=== PATIENT | female | born 1965 | race Caucasian/White ===

== ENCOUNTER 2018-03-15 20:54 | Inpatient (IN) | payer OTHER ==
[~2018-03-15] VITALS: Ht 127 cm; Wt 56.2 kg
--- NOTE | ~2018-03-15 | EKG ---
[address] [address] ELECTROCARDIOGRAM REPORT Name: HUMPHREY Room #: 461-P ADM IN M.R.#: [id number] Admission: 03/16/18 Attend Phys: Arron Strange MD Discharge: Date of : 63 Report #: [id number] THIS REPORT FOR: //name// [facility] ED Test Date: 2018-03-15 Test Time: 21:49:50 Pat Name: HOLLY YIN Department: Room: Gender: F Pest Management Supervisor: no : 1965 Requested By: Karime Siddiqui Order Number: [id number] MD: Shaun Gaming Measurements Intervals [place] Rate: 91 P: 41 NV: 142 QRS: 22 QRSD: 88 T: 50 QT: 342 QTc: 421 Interpretive Statements Sinus rhythm Compared to ECG 07/08/2012 19:53:04 No significant changes Electronically Signed On 03-16-2018 7:52:56 CDT by Shaun Gaming [email or web address] <ELECTRONICALLY SIGNED> By: Shaun Gaming MD 03/16/18 0752 2149 48 Shaun Gaming MD /JIM
--- NOTE | ~2018-03-15 | 2DMMODE ---
[facility] [address] [facility] [place] [address] 2 D/M-MODE ECHOCARDIOGRAM Name: YIN Room #: 461-P ADM IN M.R.#: [id number] Admission: 03/16/18 Attend Phys: Arron Strange MD Discharge: Date of : 63 Date of Service: 03/16/18 1011 Report #: [id number] THIS REPORT FOR: //name// APPROVED REPORT Study performed: 03/16/2018 09:16:37 EXAM: Comprehensive 2D, Doppler, and color-flow Echocardiogram Patient Location: Bedside Room #: 461 Status: routine BSA: 1.33 HR: 115 bpm BP: 146/96 mmHg Rhythm: Tachycardia Other Information Study Quality: Adequate Indications Hypertensive urgency. Hx: DM 2D Dimensions RVDd: 22.91 mm LVEF(%): 54.91 (>50%) IVSd: 9.71 (7-11mm) LVOT Diam: 17.61 (18-24mm) LVDd: 42.97 mm PWd: 10.48 (7-11mm) LVDs: 30.83 (25-40mm) Aortic Root: 27.15 mm Balbuena's LVEF: 54.91 % Volumes Left Atrial Volume (Systole) Single Plane 4CH: 20.27 mL Single Plane 2CH: 25.45 mL LA ESV Index: 19.00 mL/m2 Aortic Valve AoV Peak Saul.: 1.61 m/s AO Peak Gr.: 10.37 mmHg LVOT Max P.55 mmHg LVOT Max V: 1.07 m/s MONIQUE Vmax: 1.61 cm2 Pulmonary Valve PV Peak Saul.: 1.20 m/s PV Peak Gr.: 5.73 mmHg [facility] [address] [place] [address] 2 D/M-MODE ECHOCARDIOGRAM Name: DORCHESTER Room #: 461-P [facility] IN .R.#: [id number] Admission: 03/16/18 Attend Phys: Arron Strange MD Discharge: Date of : 63 Date of Service: 03/16/18 1011 Report #: [id number] Pulmonary Vein P Vein S: 0.63 m/s P Vein A: 0.44 m/s P Vein D: 0.41 m/s P Vein A Dur.: 79.6 msec P Vein S/D Ratio: 1.54 Tricuspid Valve TR Peak Saul.: 2.60 m/s RAP Estimate: 5.00 mmHg TR Peak Gr.: 27.02 mmHg PA Pressure: 32.00 mmHg Left Ventricle The left ventricle is normal size. There is normal LV segmental wall motion. There is normal left ventricular wall thickness. Left ventricular systolic function is normal. LVEF is 55-60%. This study is not technically sufficient to allow evaluation of the LV diastolic function due to tachycardia. Right Ventricle The right ventricle is normal size. The right ventricular systolic function is normal. Atria The left atrium size is normal. The right atrium size is normal. Aortic Valve The Aortic valve is mildly sclerotic. Trace aortic regurgitation. There is no aortic valvular stenosis. Mitral Valve The mitral valve is normal in structure. There is no mitral valve regurgitation noted. No evidence of mitral valve stenosis. Tricuspid Valve The tricuspid valve is normal in structure. Trace tricuspid regurgitation. Estimated PAP is 30-35mmHg. Pulmonic Valve Pulmonic valve is not well visualized. Great Vessels The aortic root is normal in size. IVC is normal in size and collapses >50% with inspiration. Pericardium Small pericardial effusion noted. [address] [address] 2 D/M-MODE ECHOCARDIOGRAM Name: Room #: 461-P [facility] IN M.R.#: [id number] Admission: 03/16/18 Attend Phys: Arron Strange MD Discharge: Date of : 63 Date of Service: 03/16/18 1011 Report #: [id number] <Conclusion> The left ventricle is normal size. LVEF is 55-60%. The Aortic valve is mildly sclerotic. Trace aortic regurgitation. The mitral valve is normal in structure. The tricuspid valve is normal in structure. Trace tricuspid regurgitation. Estimated PAP is 30-35mmHg. Pulmonic valve is not well visualized. Small pericardial effusion noted. <ELECTRONICALLY SIGNED> By: Jani Munoz MD 03/16/18 1011 1011 1011 Jani Munoz MD /INF
[~2018-03-15 20:54] MED LIST: AYR50 ML; AYR50 ML NASAL; CAL-CITRATE PL1 EACH; CALCIUM 600 +1 EAC1 PO; DEPAKOTE ER250 MG PO; DEPAKOTE ER500 MG PO; DETROL1 MG; ENABLEX15 MG PO; FLUOXETINE HCL20 M1 PO; FORTEO750 MCG/3 SUBQ; FOSAMAX 70 MG T70 M1 PO; GLIPIZIDE5 MG PO; IBUPROFEN 600600 M1; IBUPROFEN 600600 M1 PO; JANUVIA100 MG PO; LIPITOR 20 MG T20 M1 PO; LOPERAMIDE 2 MG2 M1 PO; LOXAPINE5 MG PO; MECLIZINE HCL25 M1 PO; METFORMIN HCL500 MG PO; NAPROSYN375 MG PO; NORCO 5-325 TA1 EACH PO; PERIDEX15 ML SWISH&SPIT; PRENATAL; PROZAC20 MG PO; REGULOID; RISPERIDONE; RISPERIDONE PO; TRAMADOL 50 MG50 MG PO; TROSPIUM CHLORI60 MG PO; UNICOMPLEX M TA1 TA1 PO; VITAMIN D1000 UNI1 PO; VITAMIN D31000 UNI2 PO; VITAMIN D3400 UNIT PO; VITAMIN D400 UNI1 PO; X VIATE TOP; ZPAK PO; [UNRECOGNIZED DRUG - OTHER]; [UNRECOGNIZED DRUG - OTHER] TOP
[2018-03-15 21:18] VITALS: BP 203/119
[2018-03-15] MEDS ORDERED: REGULOID0.4 GM PO (21:31)
[2018-03-15] MEDS ORDERED: PROLIA60 MG/1 ML SUBQ (21:33)
[2018-03-15] MEDS ORDERED: [UNRECOGNIZED DRUG - OTHER] NASAL (21:34)
[2018-03-15] MEDS ORDERED: TESSALON PERLE100 MG PO (21:34)
[2018-03-15] MEDS ORDERED: TRIPLE ANTIBIOT28 G2 TOP (21:36)
[2018-03-15] MEDS ORDERED: TRAMADOL 50 MG50 MG PO (21:37)
[2018-03-15 23:13] LABS: URINE BILIRUBIN NEGATIVE (Negative); URINE BLOOD NEGATIVE (Negative); URINE CLARITY CLEAR; URINE COLOR YELLOW; URINE GLUCOSE-RANDOM* NEGATIVE (Negative); URINE KETONES NEGATIVE (Negative); URINE LEUKOCYTES-REFLEX NEGATIVE (Negative); URINE NITRITE-REFLEX NEGATIVE (Negative); URINE PROTEIN (DIPSTICK) NEGATIVE (Negative); URINE UROBILINOGEN 0.2 E.U./dl (0.2-1.0)
[2018-03-15 23:14] LABS: ABSOLUTE NEUTROPHILS 6.3 thou/uL (1.4-8.2); BASOPHILS 0.7 % (0.0-2.0); EOSINOPHILS 4.5 % (0.0-3.0); HEMATOCRIT 36.8 % (37.0-47.0); HEMOGLOBIN 12.5 gm/dL (12.0-15.0); LYMPHOCYTES 23.8 % (24.0-44.0); MCH 29.6 pg (26.0-34.0); MCHC 33.8 g/dL (28.0-37.0); MCV 87.5 fL (80.0-100.0); MONOCYTES 10.1 % (1.0-8.0); PLATELET COUNT 275 thou/uL (150-400); POLYS 60.9 % (36.0-66.0); RBC 4.21 mil/uL (4.20-5.00); RDW 15.7 % (10.5-14.5); WBC 10.3 thou/uL (4.0-11.0)
[2018-03-15 23:21] LABS: ANION GAP 10 mmol/L (7-16); BUN 16 mg/dL (7-18); CHLORIDE 93 mmol/L (98-107); CO2 26 mmol/L (21-32); CREATININE 0.6 mg/dL (0.6-1.0); GLUCOSE 127 mg/dL (74-106); POTASSIUM 4.3 mmol/L (3.5-5.1); SODIUM 129 mmol/L (136-145)
[2018-03-15 23:30] LABS: ALBUMIN 3.1 g/dL (3.4-5.0); SGOT 11 U/L (15-37); SGPT 16 U/L (30-65); TOTAL BILIRUBIN 0.2 mg/dL (<0.1-1.0); TOTAL PROTEIN 7.3 g/dL (6.4-8.2); TROPONIN-I < 0.04 ng/mL (<0.06)
[2018-03-16 00:45] VITALS: BP 132/66
[2018-03-16 01:00] VITALS: BP 132/66
[2018-03-16 01:16] VITALS: BP 133/73
[2018-03-16 05:09] VITALS: BP 145/94
[2018-03-16 08:00] VITALS: BP 146/96
[2018-03-16 15:46] LABS: CALCIUM 8.5 mg/dL (8.5-10.1); CREATININE 0.6 mg/dL (0.6-1.0); POTASSIUM 4.5 mmol/L (3.5-5.1)
[2018-03-16 16:00] VITALS: BP 116/66
[2018-03-17 03:58] VITALS: BP 164/101
[2018-03-17 06:35] LABS: ABSOLUTE NEUTROPHILS 8.6 thou/uL (1.4-8.2); BASOPHILS 0.5 % (0.0-2.0); EOSINOPHILS 2.9 % (0.0-3.0); HEMATOCRIT 40.9 % (37.0-47.0); HEMOGLOBIN 13.6 gm/dL (12.0-15.0); LYMPHOCYTES 16.8 % (24.0-44.0); MCH 28.9 pg (26.0-34.0); MCHC 33.2 g/dL (28.0-37.0); MCV 86.9 fL (80.0-100.0); MONOCYTES 8.9 % (1.0-8.0); PLATELET COUNT 315 thou/uL (150-400); POLYS 70.9 % (36.0-66.0); RDW 15.7 % (10.5-14.5); WBC 12.1 thou/uL (4.0-11.0)
[2018-03-17 06:45] LABS: CALCIUM 9.2 mg/dL (8.5-10.1); CREATININE 0.5 mg/dL (0.6-1.0); POTASSIUM 3.7 mmol/L (3.5-5.1)
[2018-03-17 07:16] LABS: FOLIC ACID 16.2 ng/mL (8.6-58.9)
[2018-03-17 08:00] VITALS: BP 138/80
[2018-03-17] MEDS ORDERED: HYDRALAZINE 10M10 MG PO (13:55)
[2018-03-17] MEDS ORDERED: VITAMIN B-12500 MCG PO (14:13)
[2018-03-17 14:16] VITALS: BP 138/80
[2018-03-17 15:20] VITALS: BP 138/80
== END 2018-03-17 16:54 | disposition home or self-care (01) | DRG 304 ==
LOC: ER 20:54 → 4W 03-16 00:21 → EROBS 03-16 00:21 → 4W 03-16 00:47 → ENTRNSPT 03-17 16:31 → 4W 03-17 16:54
PROVIDERS: Hospitalist; Nurse Practitioner Family
DX: I16.0 Hypertensive urgency (principal); G93.40 Encephalopathy, unspecified; E87.1 Hypo-osmolality and hyponatremia; Q87.1 Congenital malformation syndromes predominantly associated with short stature; F42.9 Obsessive-compulsive disorder, unspecified; M81.0 Age-related osteoporosis without current pathological fracture; I10 Essential (primary) hypertension; R21 Rash and other nonspecific skin eruption; E53.8 Deficiency of other specified B group vitamins; R00.0 Tachycardia, unspecified; E11.9 Type 2 diabetes mellitus without complications; Z79.84 Long term (current) use of oral hypoglycemic drugs; Z79.899 Other long term (current) drug therapy; Z88.5 Allergy status to narcotic agent; Z88.8 Allergy status to other drugs, medicaments and biological substances
CPT/HCPCS: 10045

== ENCOUNTER 2019-02-27 18:22 | Emergency (ER) | payer OTHER ==
[~2019-02-27] VITALS: Ht 157.5 cm; Wt 54.0 kg
[~2019-02-27 18:22] MED LIST changes: +HYDRALAZINE 10M10 MG PO; +PROLIA60 MG/1 ML SUBQ; +REGULOID0.4 GM PO; +TESSALON PERLE100 MG PO; +TRIPLE ANTIBIOT28 G2 TOP; +VITAMIN B-12500 MCG PO; +[UNRECOGNIZED DRUG - OTHER] NASAL
[2019-02-27] MEDS ORDERED: LISINOPRIL20 MG PO (19:18)
[2019-02-27] MEDS ORDERED: PROLIA60 MG/1 ML SUBQ (19:21)
[2019-02-27] MEDS ORDERED: IBUPROFEN 800800 M1 PO (19:24)
[2019-02-27] MEDS ORDERED: [UNRECOGNIZED DRUG - OTHER] TOP (19:24)
[2019-02-27] MEDS ORDERED: TESSALON PERLE100 MG PO (19:25)
[2019-02-27] MEDS ORDERED: TYLENOL325 MG PO (19:25)
[2019-02-27] MEDS ORDERED: MUCINEX600 MG PO (19:26)
[2019-02-27] MEDS ORDERED: SORE THROAT LO1 EAC3 PO (19:26)
[2019-02-27] MEDS ORDERED: HYDRALAZINE 10M10 MG PO (19:27)
[2019-02-27] MEDS ORDERED: [UNRECOGNIZED DRUG - CODE] PO (19:27)
[2019-02-27] MEDS ORDERED: TRIPLE ANTIBIO1 EAC1 TOP (19:28)
[2019-02-27] MEDS ORDERED: IBUPROFEN 600600 M1 PO (20:27)
[2019-02-27 20:57] VITALS: BP 168/86
== END 2019-02-27 20:59 | disposition home or self-care (01) ==
LOC: ER 18:22
DX: S05.11XA Contusion of eyeball and orbital tissues, right eye, initial encounter (principal); S05.12XA Contusion of eyeball and orbital tissues, left eye, initial encounter; F42.9 Obsessive-compulsive disorder, unspecified; M81.0 Age-related osteoporosis without current pathological fracture; E11.9 Type 2 diabetes mellitus without complications; Z88.4 Allergy status to anesthetic agent; Z88.5 Allergy status to narcotic agent; Z88.8 Allergy status to other drugs, medicaments and biological substances

== ENCOUNTER 2019-06-11 13:58 | Emergency (ER) | payer OTHER ==
[~2019-06-11] VITALS: Ht 149.9 cm; Wt 54.4 kg
[~2019-06-11 13:58] MED LIST changes: +IBUPROFEN 800800 M1 PO; +LISINOPRIL20 MG PO; +MUCINEX600 MG PO; +SORE THROAT LO1 EAC3 PO; +TRIPLE ANTIBIO1 EAC1 TOP; +TYLENOL325 MG PO; +[UNRECOGNIZED DRUG - CODE] PO; +[UNRECOGNIZED DRUG - OTHER] TOP
[2019-06-11] MEDS ORDERED: TYLENOL EXTRA500 MG PO (15:13)
[2019-06-11 15:45] VITALS: BP 145/79
== END 2019-06-11 15:45 | disposition home or self-care (01) ==
LOC: ER 13:58
DX: S30.0XXA Contusion of lower back and pelvis, initial encounter (principal); S20.222A Contusion of left back wall of thorax, initial encounter; E11.9 Type 2 diabetes mellitus without complications; M81.0 Age-related osteoporosis without current pathological fracture; F42.9 Obsessive-compulsive disorder, unspecified; Z88.5 Allergy status to narcotic agent; Z88.6 Allergy status to analgesic agent; Z88.8 Allergy status to other drugs, medicaments and biological substances; W01.0XXA Fall on same level from slipping, tripping and stumbling without subsequent striking against object, initial encounter; Y92.89 Other specified places as the place of occurrence of the external cause; Y93.89 Activity, other specified; Y99.8 Other external cause status

== ENCOUNTER 2019-06-24 10:37 | Emergency (ER) | payer OTHER ==
[~2019-06-24] VITALS: Ht 149.9 cm; Wt 53.5 kg
[~2019-06-24 10:37] MED LIST changes: +TYLENOL EXTRA500 MG PO
[2019-06-24] MEDS ORDERED: LOXAPINE25 MG PO (11:13)
[2019-06-24 11:21] LABS: HEMATOCRIT 39.9 % (37.0-47.0); HEMOGLOBIN 13.3 gm/dL (12.0-15.0); MCH 30.4 pg (26.0-34.0); MCHC 33.2 g/dL (28.0-37.0); MCV 91.5 fL (80.0-100.0); PLATELET COUNT 339 thou/uL (150-400); RBC 4.36 mil/uL (4.20-5.00); RDW 14.4 % (10.5-14.5); WBC 9.8 thou/uL (4.0-11.0)
[2019-06-24] MEDS ORDERED: REGULOID POWDE PO (11:22)
[2019-06-24 11:31] LABS: ANION GAP 5 mmol/L (7-16); BUN 14 mg/dL (7-18); CALCIUM 9.9 mg/dL (8.5-10.1); CHLORIDE 91 mmol/L (98-107); CO2 32 mmol/L (21-32); CREATININE 0.6 mg/dL (0.6-1.0); GLUCOSE 133 mg/dL (74-106); SODIUM 128 mmol/L (136-145)
[2019-06-24 11:36] LABS: ALBUMIN 3.3 g/dL (3.4-5.0); DIRECT BILIRUBIN < 0.1 mg/dL (<0.1-0.3); SGOT 8 U/L (15-37); SGPT 15 U/L (30-65); TOTAL BILIRUBIN 0.2 mg/dL (<0.1-1.0); TOTAL PROTEIN 7.8 g/dL (6.4-8.2)
[2019-06-24 11:49] LABS: ABSOLUTE NEUTROPHILS 7.4 thou/uL (1.4-8.2); ATYPICAL LYMPHS 2 %
[2019-06-24 11:50] LABS: ANISOCYTOSIS SLIGHT; POIKILOCYTOSIS SLIGHT
[2019-06-24 11:52] LABS: URINE BILIRUBIN NEGATIVE (Negative); URINE BLOOD NEGATIVE (Negative); URINE CLARITY CLEAR; URINE COLOR YELLOW; URINE GLUCOSE-RANDOM* NEGATIVE (Negative); URINE KETONES 1+ (Negative); URINE LEUKOCYTES-REFLEX NEGATIVE (Negative); URINE NITRITE-REFLEX NEGATIVE (Negative); URINE PROTEIN (DIPSTICK) NEGATIVE (Negative); URINE UROBILINOGEN 0.2 E.U./dl (0.2-1.0)
[2019-06-24 11:59] LABS: AMP/METHAMP Negative (Negative); BARBITURATES Negative (Negative); BENZODIAZEPINES Negative (Negative); COCAINE Negative (Negative); METHADONE Negative (Negative); OPIATES Negative (Negative); PCP Negative (Negative)
[2019-06-24 13:46] VITALS: BP 152/89
== END 2019-06-24 13:45 | disposition home or self-care (01) ==
LOC: ER 10:37
PROVIDERS: Emergency Medicine
DX: E87.1 Hypo-osmolality and hyponatremia (principal); R45.1 Restlessness and agitation; R42 Dizziness and giddiness; E11.9 Type 2 diabetes mellitus without complications; M81.0 Age-related osteoporosis without current pathological fracture; F42.9 Obsessive-compulsive disorder, unspecified; Z88.5 Allergy status to narcotic agent; Z88.6 Allergy status to analgesic agent; Z88.8 Allergy status to other drugs, medicaments and biological substances; W18.39XA Other fall on same level, initial encounter; Y93.01 Activity, walking, marching and hiking; Y92.198 Other place in other specified residential institution as the place of occurrence of the external cause; Y99.8 Other external cause status

== ENCOUNTER 2019-10-01 10:58 | Emergency (ER) | payer OTHER ==
[~2019-10-01] VITALS: Ht 137.2 cm; Wt 49.0 kg
[~2019-10-01 10:58] MED LIST changes: +LOXAPINE25 MG PO; +REGULOID POWDE PO
[2019-10-01 12:20] LABS: ANION GAP 11 mmol/L (7-16); BUN 18 mg/dL (7-18); CALCIUM 9.8 mg/dL (8.5-10.1); CHLORIDE 89 mmol/L (98-107); CO2 25 mmol/L (21-32); CREATININE 0.5 mg/dL (0.6-1.0); GLUCOSE 151 mg/dL (74-106); HEMATOCRIT 38.2 % (37.0-47.0); HEMOGLOBIN 12.6 gm/dL (12.0-15.0); MCH 30.1 pg (26.0-34.0); MCHC 32.9 g/dL (28.0-37.0); MCV 91.5 fL (80.0-100.0); PLATELET COUNT 271 thou/uL (150-400); POTASSIUM 4.3 mmol/L (3.5-5.1); RBC 4.17 mil/uL (4.20-5.00); RDW 14.8 % (10.5-14.5); SODIUM 125 mmol/L (136-145); WBC 11.9 thou/uL (4.0-11.0)
[2019-10-01 12:30] LABS: ALBUMIN 3.5 g/dL (3.4-5.0); SGOT 12 U/L (15-37); SGPT 21 U/L (30-65); TOTAL BILIRUBIN 0.2 mg/dL (<0.1-1.0); TOTAL PROTEIN 8.1 g/dL (6.4-8.2); TROPONIN-I <0.06 ng/mL (<0.06)
[2019-10-01] MEDS ORDERED: PROLIA60 MG/1 ML SUBQ (13:04)
[2019-10-01 13:22] LABS: ABSOLUTE NEUTROPHILS 9.3 thou/uL (1.4-8.2)
[2019-10-01 13:24] LABS: ANISOCYTOSIS 1+
[2019-10-01 14:52] VITALS: BP 162/75
--- NOTE | 2019-10-02 09:58 | EKG ---
[place] [address] [facility] [place] [address] ELECTROCARDIOGRAM REPORT Name: HUMPHREY Room #: KERRI Fischer#: [id number] Admission: 10/01/19 Attend Phys: Discharge: 10/01/19 Date of : 63 Report #: [id number] THIS REPORT FOR: //name// [facility] ED Test Date: 2019-10-01 Test Time: 11:32:24 Pat Name: HOLLY YIN Department: Room: Gender: F Technology Instructor: ira bello : 1965 Requested By: Trice Chun Order Number: [id number] MD: Jcarlos Talbert Measurements Intervals [place] Rate: 116 P: MS: QRS: 24 QRSD: 86 T: 57 QT: 312 QTc: 434 Interpretive Statements Sinus tachycardia Otherwise normal tracing Compared to ECG 03/15/2018 21:49:50 No significant change was found Electronically Signed On 10-02-2019 9:57:54 LIFT BUILDER WHOLE by Jcarlos Talbert [email or web address] <ELECTRONICALLY SIGNED> By: Jcarlos Talbert MD, [facility] 10/02/19 0957 1132 1132 Jcarlos Talbert MD, FACC /EPI
== END 2019-10-01 14:54 | disposition home or self-care (01) ==
LOC: ER 10:58
PROVIDERS: Emergency Medicine
DX: I10 Essential (primary) hypertension (principal); R42 Dizziness and giddiness; E11.9 Type 2 diabetes mellitus without complications; M81.0 Age-related osteoporosis without current pathological fracture; Z88.6 Allergy status to analgesic agent; Z88.8 Allergy status to other drugs, medicaments and biological substances

== ENCOUNTER 2019-10-29 07:53 | Emergency (ER) | payer OTHER ==
[~2019-10-29] VITALS: Ht 137.2 cm; Wt 63.5 kg
[2019-10-29] MEDS ORDERED: AUGMENTIN 875-1 EACH PO (10:06)
[2019-10-29 10:12] VITALS: BP 142/82
== END 2019-10-29 10:15 | disposition home or self-care (01) ==
LOC: ER 07:53
DX: S01.81XA Laceration without foreign body of other part of head, initial encounter (principal); S01.511A Laceration without foreign body of lip, initial encounter; I10 Essential (primary) hypertension; E11.9 Type 2 diabetes mellitus without complications; M81.0 Age-related osteoporosis without current pathological fracture; Z88.6 Allergy status to analgesic agent; Z88.8 Allergy status to other drugs, medicaments and biological substances; W18.39XA Other fall on same level, initial encounter; Y93.89 Activity, other specified; Y92.128 Other place in nursing home as the place of occurrence of the external cause; Y99.8 Other external cause status

== ENCOUNTER 2019-11-24 11:06 | Inpatient (IN) | payer OTHER ==
[~2019-11-24] VITALS: Ht 121.9 cm; Wt 58.1 kg
[2019-11-24] VITALS (7 sets, daily range): BP systolic 111–166; BP diastolic 59–97
[~2019-11-24 11:06] MED LIST changes: +AUGMENTIN 875-1 EACH PO
[2019-11-24 14:26] LABS: ABSOLUTE NEUTROPHILS 9.5 thou/uL (1.4-8.2); BASOPHILS 0.8 % (0.0-2.0); EOSINOPHILS 1.8 % (0.0-3.0); HEMATOCRIT 33.9 % (37.0-47.0); MCH 29.9 pg (26.0-34.0); MCHC 32.6 g/dL (28.0-37.0); MCV 91.7 fL (80.0-100.0); MONOCYTES 10.1 % (1.0-8.0); PLATELET COUNT 341 thou/uL (150-400); POLYS 73.3 % (36.0-66.0); RBC 3.69 mil/uL (4.20-5.00); RDW 14.6 % (10.5-14.5)
[2019-11-24 14:38] LABS: CALCIUM 9.3 mg/dL (8.5-10.1); CREATININE 0.5 mg/dL (0.6-1.0); POTASSIUM 4.1 mmol/L (3.5-5.1)
[2019-11-24 14:42] LABS: APTT 28.6 Seconds (24.5-32.8); PROTIME 10.2 Seconds (9.3-11.4)
[2019-11-24 14:45] LABS: TOTAL BILIRUBIN 0.2 mg/dL (<0.1-1.0); TOTAL PROTEIN 7.7 g/dL (6.4-8.2)
[2019-11-24 15:57] LABS: URINE BILIRUBIN NEGATIVE (Negative); URINE BLOOD NEGATIVE (Negative); URINE CLARITY CLEAR; URINE COLOR YELLOW; URINE GLUCOSE-RANDOM* NEGATIVE (Negative); URINE KETONES TRACE (Negative); URINE LEUKOCYTES-REFLEX NEGATIVE (Negative); URINE NITRITE-REFLEX NEGATIVE (Negative); URINE PROTEIN (DIPSTICK) NEGATIVE (Negative); URINE SPECIFIC GRAVITY 1.015 (1.005-1.035); URINE UROBILINOGEN 0.2 E.U./dl (0.2-1.0)
--- NOTE | 2019-11-24 20:09 | NUR ---
PT ARRIVED ON UNIT AT 183. PT SETTLED IN TO BED, MONITOR APPLIED. IVF RUNNING. VSS. PT A/O X3. C/O SHOULDER PAIN.
[2019-11-25] VITALS (11 sets, daily range): BP systolic 139–192; BP diastolic 62–101
[2019-11-25 05:37] LABS: HEMATOCRIT 36.3 % (37.0-47.0); MCH 30.4 pg (26.0-34.0); MCHC 33.1 g/dL (28.0-37.0); MCV 91.9 fL (80.0-100.0); RBC 3.95 mil/uL (4.20-5.00); RDW 14.9 % (10.5-14.5); WBC 8.5 thou/uL (4.0-11.0)
[2019-11-25 05:51] LABS: CALCIUM 8.8 mg/dL (8.5-10.1); CREATININE 0.5 mg/dL (0.6-1.0); POTASSIUM 4.4 mmol/L (3.5-5.1)
--- NOTE | 2019-11-25 07:42 | NUR ---
PATIENT A&OX3 ABLE TO MAKE NEED KNOWN. COMPLAIN OF RT SHOULDER PAIN RELEIVED BY PAIN MEDICATION. PATIENT VERY PLESANT AND COOPERATIVE. TEACHING ON SAFETY AND FALL PREVENTION. NO ADVERSE EVENTS OVERNIGHT, HOWEVER PATIENT UNABLE TO SLEEP WELL. PATIENT IS MOVING TOWARD GOALS
--- NOTE | 2019-11-25 15:58 | NUR ---
PT DISCHARGE INSTRUCTIONS AND CHART COPY SENT WITH CAMPGROUND CLEANING ATTENDANT. PIV AND TELE WERE DC'D PTD. DR ELIZABETH NURSE TO CALL TO SET UP F/U CT HEAD. PT WHEELED OUT TO FACILITY VEHICLE.
== END 2019-11-25 16:02 | disposition short-term general hospital (02) | DRG 86 ==
LOC: ER 11:06 → EROBS 14:34 → ICU 18:15
PROVIDERS: Physician Assistant; ADMIT Hospitalist
DX: S06.6X0A Traumatic subarachnoid hemorrhage without loss of consciousness, initial encounter (principal); Q87.11 Prader-Willi syndrome; E87.1 Hypo-osmolality and hyponatremia; M81.0 Age-related osteoporosis without current pathological fracture; E11.9 Type 2 diabetes mellitus without complications; S01.01XA Laceration without foreign body of scalp, initial encounter; K59.00 Constipation, unspecified; S40.011A Contusion of right shoulder, initial encounter; I10 Essential (primary) hypertension; Z88.6 Allergy status to analgesic agent; Z88.8 Allergy status to other drugs, medicaments and biological substances; D72.829 Elevated white blood cell count, unspecified; E78.5 Hyperlipidemia, unspecified; W18.39XA Other fall on same level, initial encounter; Y93.01 Activity, walking, marching and hiking; Y92.098 Other place in other non-institutional residence as the place of occurrence of the external cause; Y99.8 Other external cause status
CPT/HCPCS: 10078

== ENCOUNTER 2019-12-01 17:09 | Emergency (ER) | payer OTHER ==
[~2019-12-01] VITALS: Ht 142.2 cm; Wt 59.9 kg
[2019-12-01 19:27] VITALS: BP 126/67
== END 2019-12-01 19:28 | disposition home or self-care (01) ==
LOC: ER 17:09
DX: S00.83XA Contusion of other part of head, initial encounter (principal); Z88.8 Allergy status to other drugs, medicaments and biological substances; Z88.5 Allergy status to narcotic agent; W18.39XA Other fall on same level, initial encounter; Y93.E1 Activity, personal bathing and showering; Y92.89 Other specified places as the place of occurrence of the external cause; Y99.8 Other external cause status

== ENCOUNTER 2020-01-17 15:37 | Inpatient (IN) | payer OTHER ==
[~2020-01-17] VITALS: Ht 152.4 cm; Wt 55.6 kg
--- NOTE | ~2020-01-17 | HC ---
[facility] [place] [address] CONSULTATION Name: Room #: 203-P ADM IN M.R.#: [id number] Admission: 01/17/20 Attend Phys: Ehsan Beltrán MD Discharge: Date of : 63 Report #: [id number] THIS REPORT FOR: cc: JOHN - Family physician unknown JOHN - Family physician unknown Jackie Bradley MD ~ CC: JOHN unknown Ehsan Beltrán DATE OF SERVICE: 01/17/2020 REASON FOR CONSULTATION: Hyponatremia. REASON FOR ADMISSION: Mental status changes. HISTORY OF PRESENT ILLNESS: This is obtained from the medical chart. The patient has some intellectual issues. She has known history of a Prader-Willi syndrome, chronic hyponatremia, hypertension, hyperlipidemia. She presented to the hospital on 01/17/2020 with mental status changes. She was admitted to further evaluate. She was found to have significant hyponatremia with sodium of 116. The patient is maintained on numerous antipsychotic medications including divalproex, fluoxetine or Prozac. Of note, this is the fact that the patient has been chronically hyponatremic. Her sodium level dating back to 10/2017 was reviewed and she had sodium level as low as 125. However, her most recent sodium value of 116 was the lowest. She has been given normal saline with the sodium going up to 126; however, this was discontinued because of rapid correction. Her sodium yesterday was 123 and I was consulted to manage her hyponatremia. There are no osmolarity studies. There are no urine electrolytes. The patient is not able to elaborate for me on her oral intake of fluids. No medication changes. History is really limited given the patient's mental status; however, it does look like that she is also maintained on ibuprofen. PAST MEDICAL HISTORY: 1. Prader-Willi syndrome. 2. Ankle surgery. 3. Breast biopsy. MEDICATIONS: Reported from the nursing facility, 1. Depakote. 2. Vitamin D. 3. Metformin. 4. Glipizide. 5. Prozac. 6. Ibuprofen. 7. Prolia. [facility] [address] [place] [address] CONSULTATION Name: Room #: 203-P [facility] IN M.R.#: [id number] Admission: 01/17/20 Attend Phys: Ehsan Beltrán MD Discharge: Date of : 63 Report #: [id number] ALLERGIES: 1. BENZODIAZEPINES. 2. LORAZEPAM. FAMILY HISTORY: Unable to obtain given the patient's limited mental capacity, REVIEW OF SYSTEMS: Unobtainable given the patient's current limited mental capacity. SOCIAL HISTORY: She lives in a intermediate. This is per medical record. I am not able to elaborate more. PHYSICAL EXAMINATION: GENERAL: She is awake and alert. VITAL SIGNS: Most recent blood pressure is 154/84. HEAD AND NECK: No jugular venous distention. CHEST: No crackles. CARDIOVASCULAR: No rub detected. ABDOMEN: Soft, nontender. EXTREMITIES: Lower extremities, no edema. LABORATORY VALUES: From today pending, sodium yesterday was 123, potassium 5, BUN 15, creatinine 0.4. IMPRESSION AND PLAN: 1. Acute hyponatremia in a patient with chronic hyponatremia. 2. Prader-Willi syndrome. 3. Diabetes mellitus. 4. Hypertension. 5. The patient's hyponatremia seems to be chronic and it seems to be related to her chronic psychotropic medications. However, other causes such as water intake and syndrome of inappropriate antidiuretic hormone secretion will have to be ruled out. She is also receiving nonsteroidal anti-inflammatory medication, which have to be discontinued. 6. Initiate acute hyponatremia workup. 7. Start on free water restrictions. 8. No need for 3% saline. 9. Try to eliminate as much as possible of her psychotropic medications as they might be contributing to her hyponatremia. By: [phone] Jackie Bradley MD /nt
[2020-01-17 15:37] VITALS: BP 161/86
[2020-01-17 16:07] LABS: ABSOLUTE NEUTROPHILS 7.4 thou/uL (1.4-8.2); BASOPHILS 0.5 % (0.0-2.0); EOSINOPHILS 1.2 % (0.0-3.0); HEMATOCRIT 35.1 % (37.0-47.0); LYMPHOCYTES 15.7 % (24.0-44.0); MCH 29.4 pg (26.0-34.0); MCHC 34.1 g/dL (28.0-37.0); MCV 86.3 fL (80.0-100.0); MONOCYTES 11.6 % (1.0-8.0); PLATELET COUNT 388 thou/uL (150-400); RBC 4.07 mil/uL (4.20-5.00); RDW 14.2 % (10.5-14.5); WBC 10.4 thou/uL (4.0-11.0)
[2020-01-17 16:17] LABS: CALCIUM 8.9 mg/dL (8.5-10.1); CREATININE 0.4 mg/dL (0.6-1.0); MAGNESIUM 1.5 mg/dL (1.8-2.4); POTASSIUM 4.7 mmol/L (3.5-5.1)
--- NOTE | 2020-01-17 16:22 | EKG ---
[facility] [place] [address] ELECTROCARDIOGRAM REPORT Name: HUMPHREY Room #: PRE M.R.#: [id number] Admission: Attend Phys: Discharge: Date of : 63 Report #: [id number] THIS REPORT FOR: cc: FAM - Family physician unknown FAM - Family physician unknown Jcarlos Talbert MD [facility] ~ THIS REPORT FOR: //name// [facility] ED Test Date: 2020-01-17 Test Time: 15:56:43 Pat Name: HOLLY HUMPHREY Department: Room: Gender: F Votator Machine Operator: [facility] : 1965 Requested By: Bry Hodgson Order Number: [id number] MD: Jcarlos Talbert Measurements Intervals [place] Rate: 96 P: 46 MN: 130 QRS: 15 QRSD: 89 T: 42 QT: 363 QTc: 459 Interpretive Statements Sinus rhythm No significant abnormality Compared to ECG 10/01/2019 11:32:24 Sinus tachycardia no longer present Electronically Signed On 01-17-2020 16:21:05 CDT by Jcarlos Talbert [email or web address] <ELECTRONICALLY SIGNED> By: Jcarlos Talbert MD, FACC 01/17/20 1621 1556 1556 Jcarlos Talbert MD, FACC /EPI
[2020-01-17 17:21] LABS: URINE BILIRUBIN NEGATIVE (Negative); URINE BLOOD TRACE (Negative); URINE CLARITY CLEAR; URINE COLOR YELLOW; URINE GLUCOSE-RANDOM* NEGATIVE (Negative); URINE KETONES NEGATIVE (Negative); URINE LEUKOCYTES-REFLEX NEGATIVE (Negative); URINE NITRITE-REFLEX NEGATIVE (Negative); URINE PROTEIN (DIPSTICK) NEGATIVE (Negative); URINE UROBILINOGEN 0.2 E.U./dl (0.2-1.0)
[2020-01-17 17:57] VITALS: BP 157/76
[2020-01-17 18:02] VITALS: BP 139/92
[2020-01-17 18:20] VITALS: BP 149/91
[2020-01-17 18:30] VITALS: BP 149/91
[2020-01-17 20:40] VITALS: BP 137/72
--- NOTE | 2020-01-18 04:41 | NUR ---
ASSUME CARE 1900. PT/VITALS STABLE. DENIES ANY PAIN. A/O TO PERSON AND PLACE, FOLLOWS COMMANDS AND ANSWERS QUESTIONS APPROPRIATELY. HOWEVER, CANNOT COMMUNICATE NEEDS. NO DISTRESS NOTED/SR ON MONITOR. ASSESSMENT CHARTED. PROGRESSING WELL WITH POC. PLAN IS TO CONTINUE TO MONITOR LOC AND REPLACE ELECTROLYTES NEEDED. WILL CONTINUE TO MONITOR AND FOLLOW WITH POC
[2020-01-18 04:43] LABS: CALCIUM 8.7 mg/dL (8.5-10.1); CREATININE 0.6 mg/dL (0.6-1.0); MAGNESIUM 2.5 mg/dL (1.8-2.4); POTASSIUM 4.8 mmol/L (3.5-5.1)
[2020-01-18 04:45] VITALS: BP 146/95
[2020-01-18 05:18] LABS: HEMATOCRIT 34.8 % (37.0-47.0); HEMOGLOBIN 11.5 gm/dL (12.0-15.0); MCH 28.9 pg (26.0-34.0); MCHC 33.2 g/dL (28.0-37.0); PLATELET COUNT 375 thou/uL (150-400); RBC 3.99 mil/uL (4.20-5.00); RDW 14.5 % (10.5-14.5); WBC 7.9 thou/uL (4.0-11.0)
[2020-01-18 07:30] VITALS: BP 158/100
[2020-01-18 07:57] LABS: ABSOLUTE NEUTROPHILS 4.9 thou/uL (1.4-8.2); ANISOCYTOSIS SLIGHT; ATYPICAL LYMPHS 2 %; POIKILOCYTOSIS SLIGHT
[2020-01-18 11:30] VITALS: BP 134/70
[2020-01-18 14:07] VITALS: BP 134/70
--- NOTE | 2020-01-18 14:18 | NUR ---
Case opened to follow for dc planning. Pt is a resident of many years at [facility]. She has hx of Prader-Martell/DM. The main number for the gp home is [phone]. Raysa is the house manger, cell # [phone]. The senior statistical programmer is Lawrence [phone], and her community service aide is Gary [phone]. All can assist with arrangements for her to return to the gp home at [place]. They like dc instructions reviewed with them and sent with the pt and any new scripts called and faxed to [facility] [phone] and fax [phone]. The pt will need a chart copy as well. Her PCP is Dr. Elin Lee and her neuro is out of [facility]. She has an uncoming telemedicine appt with them. The staff report that since her fall in November with SAH, she has been going to outpt therapy. She is an assist of 1 with a gait belt and walker for any transfers and gait. She can normally feed herself and is on a [facility] soft diet. They are open to HH f/u at [place] for RN/PT/OT as she is not able to go out to therapy d/t the stay at home order (Covid 19) and her decline in functional status. No preference for hh provider. Referral faxed [facility] for possible weekend dc. Lawrence is checking with Raysa to see if the pt's family was notified of her transfer and if she has a guardian or dpoa in place. Will follow.
[2020-01-18 16:06] VITALS: BP 152/98
--- NOTE | 2020-01-18 17:15 | NUR ---
PT CARE ASSUMED APPROX 0700. ASSESSMENTS CHARTED. PT DENIES SOA. REPORTED ABD PAIN THIS AM THAT RESOLVED AFTER HER BM. INTERVENTION FOR CONSTIPATION UNSUCCESSFUL BUT PT HAD A BM PRIOR TO LAXATIVE. PT APPETITE INTACT. TURNING Q2 HRS AND PRN. EXT CATH IN PLACE BUT MALFUNCTIONS AT TIMES. PT REMAINS INCONT. CLINICAL UPDATE GIVEN TO PT'S BROTHER JEN AND NURSE AT [facility]. HE DENIED QUESTIONS OR CONCERNS REGARDING POC. PT TOLERATING POC. NO DISTRESS NOTED.
[2020-01-18 19:25] VITALS: BP 126/62
[2020-01-19 04:45] VITALS: BP 150/89
[2020-01-19 05:59] LABS: HEMATOCRIT 33.4 % (37.0-47.0); HEMOGLOBIN 11.1 gm/dL (12.0-15.0); MCH 29.2 pg (26.0-34.0); MCHC 33.3 g/dL (28.0-37.0); MCV 87.5 fL (80.0-100.0); RBC 3.82 mil/uL (4.20-5.00); RDW 14.5 % (10.5-14.5)
[2020-01-19 06:11] LABS: CALCIUM 8.3 mg/dL (8.5-10.1); CREATININE 0.4 mg/dL (0.6-1.0); POTASSIUM 4.7 mmol/L (3.5-5.1)
[2020-01-19 07:36] VITALS: BP 159/95
--- NOTE | 2020-01-19 07:43 | NUR ---
PROGRESS PT ALERT AND ORIENTED TO SELF PLACE, STAFF. PUREWICK CATH IN PLACE, DISPLACED ONCE AND BED CHANGE PROVIDED. RF SL FLUSHES WITHOUT DIFFICULTY. SKIN C/D/I ACCUCHECKS AND SSI CONTINUE. GOOD PO FOOD AND FLUID INTAKE . TELE INTACT READING SR ALL OTHER VS WNL FALL PRECAUTIONS IN PLACE CONTINUE POC.
[2020-01-19 11:32] VITALS: BP 146/78
[2020-01-19 12:44] LABS: % SATURATION 14 % (20-39); IRON 48 ug/dL (50-170); TIBC 341 ug/dL (250-450)
[2020-01-19 13:11] LABS: FOLIC ACID 10.1 ng/mL (8.6-58.9)
[2020-01-19 15:48] VITALS: BP 146/82
--- NOTE | 2020-01-19 18:02 | NUR ---
PT CARE ASSUMED APPROX 0700. ASSESSMENTS CHARTED. PT DENIES PAIN AND SOA. VSS. PT PARTICIPATING IN CONVERSATION MORE THAN YESTERDAY. TOLERATED BEING UP TO CHAIR FOR A FEW HRS THIS SHIFT. CLINICAL UPDATE GIVEN TO PT'S BROTHER JEN. HE DENIED QUESTIONS AND CONCERNS REGARDING PT'S POC. PT TOLERATING POC. NO DISTRESS NOTED.
[2020-01-19 20:45] VITALS: BP 148/96
[2020-01-20 04:45] VITALS: BP 162/90
[2020-01-20 05:16] LABS: CALCIUM 9.2 mg/dL (8.5-10.1); CREATININE 0.4 mg/dL (0.6-1.0)
--- NOTE | 2020-01-20 06:10 | NUR ---
SLEPT PART OF SHIFT. TURNS SELF WHEN REMINDED. FEMALE CATH IN PLACE AND PATIENT INCONTINENT THIS SHIFT. WORKING ON GOALS AND PLAN OF CARE FOR NOC. PROGRESSING SLOWLY TOWARDS DISCHARGE GOALS. ENCOURAGE FLUIDS. CONTINUE TO ASSES CLOSELY.
[2020-01-20 08:51] VITALS: BP 155/91
[2020-01-20 12:24] VITALS: BP 151/102
[2020-01-20 16:54] VITALS: BP 146/77
--- NOTE | 2020-01-20 17:32 | NUR ---
ASSUMED CARE OF PATIENT AT 0700. ASSESSMENTS COMPLETED. PLEASANT PATIENT IS ALERT TO SELF AND PLACE. APPROPRIATE. INCONTINENT TO BOWEL AND BLADDER. EXTERNAL FEMALE CATH IN PLACE AND WORKING APPROPRIATELY. BLOOD SUGARS ACHS, DINNER TIME BLOOD SUGAR OF 66, GIVEN 4 OZ OF ORANGE JUICE AND RECHECK AT 125. PATIENT TO CONTINUE WITH POC.
[2020-01-20 19:30] VITALS: BP 148/89
[2020-01-21 01:22] LABS: URINE BILIRUBIN NEGATIVE (Negative); URINE BLOOD TRACE (Negative); URINE CLARITY CLOUDY; URINE COLOR YELLOW; URINE GLUCOSE-RANDOM* 1+ (Negative); URINE KETONES TRACE (Negative); URINE LEUKOCYTES 1+ (Negative); URINE NITRITE NEGATIVE (Negative); URINE PROTEIN (DIPSTICK) NEGATIVE (Negative); URINE UROBILINOGEN 0.2 E.U./dl (0.2-1.0)
[2020-01-21 01:26] LABS: URINE CREATININE-RANDOM* 41.2 mg/dL
[2020-01-21 01:28] LABS: SQUAMOUS None Seen /LPF (0-3)
[2020-01-21 01:29] LABS: BACTERIA >30 Many /HPF (None Seen); CASTS None Seen /LPF (None Seen); CRYSTALS None Seen /LPF (None Seen); MUCUS 0-3 Light strn/LPF (None Seen); URINE RBC 3-10 Few /HPF (0-2); URINE WBC 6-15 Few /HPF (0-5)
[2020-01-21 04:30] VITALS: BP 154/84
--- NOTE | 2020-01-21 06:07 | NUR ---
PT RESTING QUIETLY IN ROOM REPOSITIONED NEEDED,EXTERNAL CATHETER WITH YELLOW URINE, NO C/O PAIN, ALERT TO SELF AND PLACE, WILL CON'T TO MONITOR PER PPOC.
[2020-01-21 07:00] VITALS: BP 151/89
[2020-01-21 07:53] LABS: CALCIUM 8.7 mg/dL (8.5-10.1); CREATININE 0.5 mg/dL (0.6-1.0); POTASSIUM 4.8 mmol/L (3.5-5.1)
[2020-01-21 07:57] LABS: PHOSPHORUS 3.9 mg/dL (2.5-4.9)
[2020-01-21 11:30] VITALS: BP 156/88
--- NOTE | 2020-01-21 13:49 | NUR ---
Assumed pt care at 7am.Pt in bed alert and oriented to person and place. Assessment completed.vss and hr in the 80's and nsr per telemetry.Dr Arroyo and Neville here,order noted.Complete bed bath given by adoption manager.Pt transfered to chair with assist and walker.Fall precaution in place.Pt up in chair at present watching tv.Will continue to monitor.
[2020-01-21 16:30] VITALS: BP 155/93
[2020-01-21 19:40] VITALS: BP 148/79
[2020-01-22 04:54] VITALS: BP 155/76
--- NOTE | 2020-01-22 06:05 | NUR ---
Up in the chair at shift change then assisted back to bed. Able to state name only at beginning of shift then this am she remembered she's at the hospital. She has been calm,cooperative and pleasant. Maintained fluid restriction due to low Na. Incontinent of bladder , external female cath changed this am. Bed alarm on for safety and SCD's in place. Making progress towards care plan goals.
[2020-01-22 07:33] LABS: CREATININE 0.5 mg/dL (0.6-1.0); POTASSIUM 4.5 mmol/L (3.5-5.1)
[2020-01-22 07:38] LABS: ALBUMIN 2.8 g/dL (3.4-5.0)
[2020-01-22 07:42] VITALS: BP 158/82
[2020-01-22 11:35] VITALS: BP 114/98
[2020-01-22] MEDS ORDERED: HUMALOG100 UNIT/1 SUBQ (13:37)
[2020-01-22] MEDS ORDERED: GLIPIZIDE5 MG PO (13:38)
[2020-01-22] MEDS ORDERED: SODIUM CHLORIDE1 GM PO (13:38)
--- NOTE | 2020-01-22 15:40 | NUR ---
PATIENT ADMITTING THIS DATE TO ACUTE REHAB. ART SPECIALIST SPOKE WITH PATIENT'S BROTHER WHO IS PRIMARY CONTACT (PATIENT HAS NO DPOA). JEN IS IN AGREEMENT WITH PLAN FOR ACUTE REHAB. JEN'S NUMBER [phone]. CLOTHING FOR REHAB STAY HAS BEEN DROPPED OFF AND WILL BE COMING UP WHEN PATIENT ARRIVES. THANK YOU FOR THIS REFERRAL.
--- NOTE | 2020-01-22 17:38 | NUR ---
VSS-AFEBRILE. LUNGS CLEAR/DIMINISHED IN ALL CAMPOS BILATERALLY-ROOM AIR. 2 LARGE, SOFT BOWEL MOVEMENTS THIS SHIFT. BATH GIVEN BY OT. REPORT CALLED TO REHAB NURSE, PATIENT TRANSFERRED BY BED TO N.
== END 2020-01-22 17:22 | DRG 643 ==
LOC: ER 15:37 → 2N 18:05
PROVIDERS: Emergency Medicine; Hospitalist; Internal Medicine; Nurse Practitioner; ADMIT Hospitalist
DX: E22.2 Syndrome of inappropriate secretion of antidiuretic hormone (principal); G92 Toxic encephalopathy; Q87.11 Prader-Willi syndrome; E83.42 Hypomagnesemia; E11.9 Type 2 diabetes mellitus without complications; E78.5 Hyperlipidemia, unspecified; I10 Essential (primary) hypertension; R41.0 Disorientation, unspecified; M81.0 Age-related osteoporosis without current pathological fracture; R00.0 Tachycardia, unspecified; F41.9 Anxiety disorder, unspecified; D50.9 Iron deficiency anemia, unspecified; Z09 Encounter for follow-up examination after completed treatment for conditions other than malignant neoplasm; Z87.81 Personal history of (healed) traumatic fracture; Z88.6 Allergy status to analgesic agent; Z88.8 Allergy status to other drugs, medicaments and biological substances
CPT/HCPCS: 10081

== ENCOUNTER 2020-01-22 14:10 | Inpatient (IN) | payer OTHER ==
[~2020-01-22] VITALS: Ht 152.4 cm; Wt 53.1 kg
[~2020-01-22 14:10] MED LIST changes: +HUMALOG100 UNIT/1 SUBQ; +SODIUM CHLORIDE1 GM PO
[2020-01-22 17:30] VITALS: BP 146/98
[2020-01-22 19:23] VITALS: BP 157/81
[2020-01-22 19:29] LABS: URINE BILIRUBIN NEGATIVE (Negative); URINE BLOOD NEGATIVE (Negative); URINE CLARITY CLEAR; URINE COLOR YELLOW; URINE GLUCOSE-RANDOM* NEGATIVE (Negative); URINE KETONES NEGATIVE (Negative); URINE LEUKOCYTES-REFLEX NEGATIVE (Negative); URINE NITRITE-REFLEX NEGATIVE (Negative); URINE PROTEIN (DIPSTICK) NEGATIVE (Negative); URINE SPECIFIC GRAVITY 1.015 (1.005-1.035); URINE UROBILINOGEN 0.2 E.U./dl (0.2-1.0)
--- NOTE | 2020-01-22 19:52 | NUR ---
PT ADMIT TO 5N AT 1730. RECEIVED A REPORT FROM FRANCISCO JIMENEZ, AT 2N. PT HAD UA RESULT ON 01/20 SHOWS LEUKOCYTE ESTERASE, AND MANY WBC. PT IS NOT ON ABT FOR UTI. AND NOT ON IV IRON FOR HER ANEMIA. HGB 11.1 TODAY. SUGGESTED FRANCISCO TO CALLED DR. HANNAH TWICE. NO RESPONSE. THIS PHLEBOTOMIST SUPERVISOR/INSTRUCTOR CALLED JAYA ABOUT UA RESULT AND THAT PT IS NO LONGER ON IV IRON. AND SHE STARTED PT ON ZOSYN IV AND RECHECK UA FOR CULTURE AND WILL CONTINUE TO FOLLOW UP WITH NEED FOR IV IRON. STRAIGHT CATH UA AND SEND TO LAB, IS NEGATIVE FOR UA. CALLED JAYA AND RECEIVED T.O TO DISCONTINUE IV ABT. CONSULT PHYSICIANS WERE NOTIFIED. PT ALERT TO SELF AND PLACE. VSS OBTAINED. 146/98, HR 93, R 20 O2 99% ON RA. BS 124. NO INSULIN GIVEN. PT HAD ONE INCONT BLADDER. PT HAS RIGHT AC IV SL. GAVE REPORT TO NIGHT NURSE TO FINISHED ADMISSION. FALL PRECAUTION IN PLACE. CALL LIGHT WITHIN REACH.
[2020-01-23 06:34] LABS: HEMATOCRIT 37.8 % (37.0-47.0); HEMOGLOBIN 12.7 gm/dL (12.0-15.0); MCH 29.2 pg (26.0-34.0); MCHC 33.5 g/dL (28.0-37.0); RBC 4.35 mil/uL (4.20-5.00)
[2020-01-23 06:48] LABS: ALBUMIN 2.9 g/dL (3.4-5.0); CALCIUM 8.6 mg/dL (8.5-10.1); CREATININE 0.5 mg/dL (0.6-1.0); PHOSPHORUS 4.3 mg/dL (2.5-4.9); POTASSIUM 4.5 mmol/L (3.5-5.1)
--- NOTE | 2020-01-23 07:55 | NUR ---
PROGRESS PT ALERT TO SELF, PLEASANT AND COOPERATIVE. VSS, ON MEHANICAL ALTERED DIET AND THIN LIQUIDS MEDS AND SNACK OF UDDING GIVEN AND PT ATE INDEPENDENTLY WITH NO DIFFICULTY. FOOD AND WATER TOLERATED WITH NO CHOKING NOTED. VOIDING QS UP TO BR AND INCONTINENT X 1. ACCUCHECKS AND SSI CONTINUE. PT IS USED TO ACCUCHECKS AND ALLOWS STAFF TO MONITOR. UP WITH 1 TO 2 GB AND WALKER PT STILL WEAK FROM ELECTROLYTE IMBALANCE. AM LABS OBTAINED AWAITING RESULTS. CONTINUE POC.
[2020-01-23 07:56] VITALS: BP 134/74
--- NOTE | 2020-01-23 13:22 | NUR ---
Case opened to follow for dc planning. Pt was admitted to the acute rehab unit yesterday. Pt's RN harrison Smart, from the gp home and brother Beck updated and agreeable. Pt agreeable. The pt has had a functional decline over the past few weeks and the long-term is not allowing HH f/u due to current Covid 19 visitor restrictions. Pt is being seen by PT/OT/ST. [facility] will need to be contacted to coordinate pt's return to the gp home. DC instructions would need to be faxed to the facility. [facility] would need any new scripts faxed to them [phone]. Pt's pcp is Dr. Elin Lee. The pt was able to feed herself and walk with a gait belt, rwalker and sba prior to admission. The pt's brother is the primary next of kin contact as their parents are elderly and live in [place], [place]. The pt has lived at the long-term for many years. Prior to a couple of months ago she was supervision for all gait and adl's. Will update all parties after team conference.
--- NOTE | 2020-01-23 16:09 | NUR ---
ASSUMED PT CARE AT 0700. REPORT DIDN'T SLEEP WELL LAST NIGHT. PT ALERT TO SELF, PLACE PLEASANT AND COOPERATIVE. VSS, ON MEHANICAL ALTERED DIET AND THIN LIQUIDS MEDS AND SNACK OF UDDING GIVEN AND PT ATE INDEPENDENTLY WITH NO DIFFICULTY. FOOD AND WATER TOLERATED WITH NO CHOKING NOTED. ENCOURAGED PT TO BE UP IN DINNING ROOM FOR MEALS. PT HAS BEEN UP AND PARTICIPATED WITH ALL HER THERAPY EVALUATION THIS AM AND TOLERATED WELL. OFFERED SUPPORTIVE CARE. ENCOUARGED PT TO VOICE HER NEEDS. BS MONITOR, INSULIN AND MEDS GIVEN ORDERED. PT ABLE TO TAKE MED ONE AT THE TIME WITH WATER. UP WITH MOD ASSIST GB AND WALKER. LABS REVIEWED AND NOTIFIED JAYA. OBTAINED ORDER FOR MELATONIN TONIGTH. FALL PRECAUTION IN PLACE. CALL LIGHT WITHIN REACH CHECK FREQUENTLY FOR NEEDS AND SAFETY.
[2020-01-23 19:38] VITALS: BP 130/64
[2020-01-24 00:07] LABS: GLYCOHEMOGLOBIN (HGB A1C) 6.2 % (4.8-5.6)
--- NOTE | 2020-01-24 03:51 | NUR ---
assumed care at approx 1900 evening 01/22. pt lying in bed at change of shift resting and watching tv. pt pleasant and cooperative. pt took hs meds with water tolerating well. pt assisted with changing of pad as pt incontinent of urine. pt appears to be sleeping soundly with hourly rounding checks. bed alarm on and call light in reach. will continue to monitor.
[2020-01-24 07:25] VITALS: BP 152/80
--- NOTE | 2020-01-24 15:53 | NUR ---
ASSUMED CARES AT 0700. PT ORIENTED TO PERSON AND PLACE ONLY. C/O RIGHT FOOT PAIN AFTER PHYSICAL THERAPY, ACETAMINOPHEN ADMINISTERED NEEDED. VITALS REMAIN STABLE. 1L FLUID RESTRICTION MAINTAINED. PT REMAINS INCONTINENT OF BLADDER, URINE IS YELLOW AND CLEAR. PT UP WITH 1 MOD ASSIST, GB AND WALKER. HELMET WORN THIS AFTERNOON WITH ACTIVITY. Q1H VISUAL CHECKS. CALL LIGHT WITHIN REACH. FALL PRECAUTIONS IN PLACE
[2020-01-24 19:20] VITALS: BP 151/76
--- NOTE | 2020-01-25 02:39 | NUR ---
DENIES PAIN OR ITCHING AT THIS TIME. LARGE BM AND HAS BEEN INCONTINENT OF URINE TWICE SINCE THEN. TOLERATING PILLS WITH ONLY 2 BITES OF PUDDING. NO FURTHER FOOD DESIRED, SO SSI NOT GIVEN FOR BLOOD SUGAR OF 160 PLUS WAS 89 AT DINNERTIME. FLUID RESTRICTION CONTINUES.
[2020-01-25 07:25] VITALS: BP 176/99
--- NOTE | 2020-01-25 11:03 | H ---
[facility] [place] [address] HISTORY AND PHYSICAL Name: Room #: 505-P ADM IN M.R.#: [id number] Admission: 01/22/20 Attend Phys: Artis Bates MD Discharge: Date of : 63 Report #: [id number] THIS REPORT FOR: cc: Elin Lee MD,Elin Bates,Artis Bagley MD ~ CC: Artis Bates FAM unknown DATE OF SERVICE: 01/22/2020 HISTORY AND PHYSICAL/POSTADMISSION PHYSICIAN EVALUATION HISTORY OF PRESENT ILLNESS: The patient is a 54-year-old female with Prader-Willi syndrome, who originally was admitted to [facility] on 01/17/2020 with hyponatremia and sodium of 116. She was evaluated by Nephrology and Psychiatry. Her Prozac and loxapine were discontinued. She was placed on sodium tablets, fluid restriction, found to have iron deficiency anemia, on Venofer infusion. She did have improvement of her sodium up to 129, but her mentation was noted to not be back to baseline. She has had a metabolic encephalopathy. She also has had a significant decline from her premorbid functional level as she had been ambulatory with a walker premorbidly. She has now been admitted for acute in-hospital inpatient rehabilitation. PAST MEDICAL HISTORY: As noted above. She has a history of Prader-Willi syndrome, history of hypertension. There is a note of past subarachnoid hemorrhage. MEDICATIONS: Please see the full medication listing. ALLERGIES: SHE DOES HAVE MULTIPLE ALLERGIES ARE LISTED. SOCIAL HISTORY: The patient lives in a intermediate, she is on disability, used to front-wheeled walker. She has some assist with ADLs and IADLs were provided for. REVIEW OF SYSTEMS: No current complaints of chest pain, shortness of breath or abdominal discomfort. PHYSICAL EXAMINATION: GENERAL: A 54-year-old white female in no obvious distress. VITAL SIGNS: Last recorded temperature 98.3, pulse 89, respirations 20, blood pressure 157/81. NEUROLOGIC: The patient is alert. She does follow basic 1 step commands. There is a definite latency to her responses. Facies appeared to be symmetric. She is able to respond with simple sentences. [facility] [address] [place] [address] HISTORY AND PHYSICAL Name: Room #: 505-P ADM IN M.R.#: [id number] Admission: 01/22/20 Attend Phys: Artis Bates MD Discharge: Date of : 63 Report #: [id number] HEENT: Otherwise appeared benign. CHEST: Sounded clear to auscultation. CARDIOVASCULAR: Regular rate and rhythm. ABDOMEN: Bowel sounds positive, nontender. GENITOURINARY AND RECTAL: Deferred. EXTREMITIES: She does have some decreased range of motion at end range bilateral upper extremities. Strength is probably grade 3+/5. Lower extremities: She can lift both lower extremities antigravity, some decrease at end range of her hips. Strength is probably a grade 3+/5. Negative Homans. No focal calf swelling. She has been mod assist with basic sit to stand transfers. ASSESSMENT: A 54-year-old female with the following problem list: 1. Metabolic encephalopathy. 2. Medical complexity with generalized debilitation. 3. Multifactorial hyponatremia. 4. Prader-Willi syndrome. 5. Iron deficiency anemia. 6. Hypertension. PLAN: The patient is admitted for acute in-hospital inpatient rehabilitation. From a postadmission physician evaluation perspective, there are no relevant changes since the preadmission screening. Please see the above review of prior and current medical and functional conditions and comorbidities. Please see the patient's previous and current functional status. As far as risk of complications, the patient has multiple medical comorbidities as noted above. Initial plan of care involves the interdisciplinary acute inpatient rehabilitation program. Prognosis is reasonably good with estimated length of stay probably at least 7-10 days. Potential barriers would include her multiple medical comorbidities as noted above. The patient meets diagnostic criteria for an acute in-hospital inpatient rehabilitation stay. She meets the medical necessity criteria and we will have the data communications software consultant physicians continue to follow. She does have the tolerance for therapies and has appropriate discharge goals back to the home setting. <ELECTRONICALLY SIGNED> By: Artis Bates MD 01/25/20 1103 [id number] Artis Bates MD /[facility]
--- NOTE | 2020-01-25 14:42 | NUR ---
ASSUMED CARES AT 0700. PT ORIENTED TO PERSON AND PLACE. VITALS STABLE. C/O PAIN AROUND HER TOES, TYLENOL ADMINISTERED. NO SWELLING/ HEAT OR WOUNDS NOTED. PT REMAINS INCONTINENT OF BOWEL AND BLADDER, CLEANED AND CHANGED. 1000ML FLUID RESTRICTIONS MAINTAINED. PT PARTICIPATED IN ALL THERAPIES, TOLERATED WELL. Q1H VISUAL CHECKS. CALL LIGHT WITHIN REACH. FALL PRECAUTIONS IN PLACE AND HELMET ON WITH ALL ACTIVITIES
[2020-01-25 19:34] VITALS: BP 153/94
[2020-01-25 22:30] VITALS: BP 148/67
--- NOTE | 2020-01-26 01:24 | NUR ---
PT ASSESSMENT COMPLETED AND VSS. MEDS GIVEN ORDERED AND WELL TOLERATED. FALL PRECAUTIONS IN PLACE. INC OF BOWEL AND BLADDER. LARGE BM AT HS. ASST WITH REPOSITION FOR COMFORT. SLEEPING WELL. WILL CONTINUE TO MONITOR FREQUENTLY.
[2020-01-26 04:51] LABS: ABSOLUTE NEUTROPHILS 5.2 thou/uL (1.4-8.2); BASOPHILS 1.2 % (0.0-2.0); EOSINOPHILS 6.1 % (0.0-3.0); HEMATOCRIT 33.8 % (37.0-47.0); HEMOGLOBIN 11.1 gm/dL (12.0-15.0); LYMPHOCYTES 25.1 % (24.0-44.0); MCHC 32.8 g/dL (28.0-37.0); MCV 88.2 fL (80.0-100.0); MONOCYTES 8.4 % (1.0-8.0); PLATELET COUNT 353 thou/uL (150-400); POLYS 59.2 % (36.0-66.0); RBC 3.83 mil/uL (4.20-5.00); WBC 8.8 thou/uL (4.0-11.0)
[2020-01-26 05:05] LABS: CALCIUM 7.7 mg/dL (8.5-10.1); CREATININE 0.5 mg/dL (0.6-1.0); MAGNESIUM 1.9 mg/dL (1.8-2.4); POTASSIUM 4.3 mmol/L (3.5-5.1)
[2020-01-26 08:00] VITALS: BP 113/74; BP 151/79
--- NOTE | 2020-01-26 16:16 | NUR ---
ASSUMED CARES AT 0700. REPORTS SLEPT GOOD. PT ORIENTED TO PERSON AND PLACE ONLY. C/O RIGHT FOOT PAIN WITH PHYSICAL THERAPY, ACETAMINOPHEN ADMINISTERED SCHEDULE. VITALS REMAIN STABLE. 1L FLUID RESTRICTION MAINTAINED. SODIUM IS 132 TODAY. SODIUM TABLET DISCONTINUE PER JAYA. PT REMAINS INCONTINENT OF BLADDER, URINE IS YELLOW AND CLEAR. HAD HAD LARGE LOOSE BM WHILE HAVING SPEECH THERAPY. REGIONAL EDUCATION MANAGER CLEANSED. PT UP WITH 1 MOD ASSIST, GB AND WALKER. HELMET WORN WITH ACTIVITY. OFFERED SUPPORTIVE CARE. ENCOURAGED PT TO VOICE HER NEEDS. REASSESSMENT PER CHART. BS MONITOR. MORNING MEDS GIVEN ONE AT THE TIME WITH WATER. UP TO DINNING ROOM FOR MEALS. ABLE TO FEED HERSELF AND ATE 100% HER TRAY.Q1H VISUAL CHECKS. CALL LIGHT WITHIN REACH. FALL PRECAUTIONS IN PLACE. WILL CONTINUE TO MONITOR.
[2020-01-26 19:40] VITALS: BP 156/92
--- NOTE | 2020-01-26 23:44 | NUR ---
PT ALERT AND ORIENTED X 2. INCONT OF URINE. BLOOD SUGAR 199 AT HS. INSULIN GIVEN ORDERED. PT DENIES PAIN OR DISCOMFORT. BED ALARM ON FOR SAFETY. PT APPEARS TO BE SLEEPING ON HOURLY ROUNDS.
[2020-01-27 07:20] VITALS: BP 173/99
[2020-01-27 10:00] VITALS: BP 148/81
--- NOTE | 2020-01-27 11:40 | EKG ---
[facility] [place] [address] ELECTROCARDIOGRAM REPORT Name: Room #: 505-P ADM IN M.R.#: [id number] Admission: 01/22/20 Attend Phys: Artis Bates MD Discharge: Date of : 63 Report #: [id number] THIS REPORT FOR: cc: Elin Lee MD,Elin Gaming,Shaun Vicente MD ~ THIS REPORT FOR: //name// [facility] Test Date: 2020-01-27 Test Time: 10:27:23 Pat Name: JANUARY HUMPHREY Department: Room: [facility] P Gender: F Engineering Secretary: DHAVAL : 1965 Requested By: Nat Lancaster Order Number: [id number] MD: Shaun Gaming Measurements Intervals Randall Rate: 96 P: 20 AK: 141 QRS: -5 QRSD: 150 T: 30 QT: 328 QTc: 415 Interpretive Statements Sinus rhythm Left atrial enlargement Left ventricular hypertrophy Anterior Q waves, possibly due to LVH Compared to ECG 01/17/2020 15:56:43 Electronically Signed On 01-27-2020 11:38:33 CDT by Shaun Gaming [email or web address] <ELECTRONICALLY SIGNED> By: Shaun Gaming MD 01/27/20 1138 1027 1027 Shaun Gaming MD /EPI
--- NOTE | 2020-01-27 14:07 | NUR ---
ASSUMED CARES AT 0700. PT ORIENTED TO PERSON AND PLACE ONLY. C/O FEET PAIN, AROUND TOES, TYLENOL ADMINISTERED ORDERED. BP AND HR ELEVATED THIS AM, HOSPITALIST NOTIFIED AND ORDERS RECEIVED, WILL CONTINUE TO MONITOR. 1000ML FLUID RESTRICTION MAINTAINED. PT REMAINS INCONTINENT OF BOTH BOWEL AND BLADDER, JORDEN-CARE GIVEN AND BARRIER CREAM APPLIED. PT UP WITH 1-2 MOD ASSIST, GB AND WALKER. HELMET ON WITH ALL TRANSFERS AND AMBULATION. Q1H VISUAL CHECKS. CALL LIGHT WITHIN REACH. FALL PRECAUTIONS IN PLACE
[2020-01-27 19:10] VITALS: BP 129/76
--- NOTE | 2020-01-28 02:14 | NUR ---
PT CARE ASSUMED AT 1900 WITH PT IN BED WATCHING TV.PT APPEAR TO BE IN NO ACUTE DISTRESS DURING THE SHIFT.PT IS A/O X3 AND VERY PLEASANT.PT TOOK MEDICATIONS WITH NO ISSUES.PT NEEDS A NEW HELMET OLD HELMET IS BIG.WILL CONTINUE TO MONITOR PER POC
[2020-01-28 07:04] LABS: ABSOLUTE NEUTROPHILS 3.9 thou/uL (1.4-8.2); BASOPHILS 0.7 % (0.0-2.0); EOSINOPHILS 5.5 % (0.0-3.0); HEMATOCRIT 37.2 % (37.0-47.0); HEMOGLOBIN 12.4 gm/dL (12.0-15.0); LYMPHOCYTES 25.9 % (24.0-44.0); MCH 29.2 pg (26.0-34.0); MCHC 33.2 g/dL (28.0-37.0); MONOCYTES 10.3 % (1.0-8.0); PLATELET COUNT 379 thou/uL (150-400); POLYS 57.6 % (36.0-66.0); RBC 4.23 mil/uL (4.20-5.00); RDW 15.1 % (10.5-14.5); WBC 6.7 thou/uL (4.0-11.0)
[2020-01-28 07:21] LABS: ALBUMIN 2.8 g/dL (3.4-5.0); CALCIUM 8.6 mg/dL (8.5-10.1); CREATININE 0.5 mg/dL (0.6-1.0); MAGNESIUM 1.7 mg/dL (1.8-2.4); PHOSPHORUS 3.4 mg/dL (2.5-4.9); POTASSIUM 4.1 mmol/L (3.5-5.1); TOTAL BILIRUBIN 0.2 mg/dL (<0.1-1.0); TOTAL PROTEIN 7.2 g/dL (6.4-8.2)
[2020-01-28 08:41] VITALS: BP 160/90
--- NOTE | 2020-01-28 10:24 | NUR ---
, [facility] called to see if had dc date or plan for january " she is from retirement and we still trying to see if with the covid if she going to have to go somewhere else before going back to her retirement. she needs the therapy allot and has to be doing allot more" tarchidi with [facility]. education that need to have team meeting 1st and then will have better idea of her needs for dc. " please keep me updated"/tarren. will cont following as needed for dc needs.
--- NOTE | 2020-01-28 11:36 | NUR ---
ASSUMED CARES AT 0700. REPORTS SLEPT GOOD. PT ORIENTED TO PERSON AND PLACE ONLY. C/O RIGHT FOOT PAIN WITH PHYSICAL THERAPY, ACETAMINOPHEN ADMINISTERED SCHEDULE AND PRN TRAMADOL GIVEN PER PHYSICAL THERAPIST SUGGESTED. VITALS REMAIN STABLE. 1L FLUID RESTRICTION MAINTAINED. PT REMAINS INCONTINENT OF BLADDER, URINE IS YELLOW AND CLEAR. OFFERED TOILETING FRENQUENTLY. HAD HAD LARGE LOOSE BM WITH PHYSICAL THERAPIST AND COMMISSARY OFFICER SAID SHE HAD MODERATE BM EARLIER. HELD COLACE AND NANDA D/T LOOSE STOOL. JAYA ORDERED KUB SINCE PT HAS HX OF CONSTIPATION AND PT C/O ABD PAIN. KUB SHOWS DEGENATIVE T2-L1 LEVEL, NOTIFY JAYA. WILL CONTINUE TO MONITOR. PT UP WITH 1 MOD ASSIST, GB AND WALKER. HELMET WORN WITH ACTIVITY. OFFERED SUPPORTIVE CARE. ENCOURAGED PT TO VOICE HER NEEDS. REASSESSMENT PER CHART. MORNING MEDS GIVEN ONE AT THE TIME WITH WATER. UP TO DINNING ROOM FOR MEALS. ABLE TO FEED HERSELF AND ATE 100% HER TRAY.Q1H VISUAL CHECKS. CALL LIGHT WITHIN REACH. FALL PRECAUTIONS IN PLACE. WILL CONTINUE TO MONITOR.
--- NOTE | 2020-01-28 13:07 | NUR ---
Nutrition: Pt seen per followup. Continues on rehab unit for acute metabolic encephalopathy. Hx Prader Willi syndrome and chronic hyponatremia. Salt tablet D/C'ed and now Na 127. Providers following daily. Continues on fluid restriction of 1000 mL/day and eating well, 85-100% of meals. On stool regimen, last BM 01/27. No new weight. Request obtaining due to prior weight inconsistencies and pt's inability to relay weight hx. Keep at low risk.
[2020-01-28 19:18] VITALS: BP 154/88
--- NOTE | 2020-01-29 02:05 | NUR ---
Assumed pt care at 1900. Pt's A/OX3, forgetful but able to make needs known. VSS. C/o abd pain, bowel sounds active and pt had a BM yesterday. Incontinent of B&B. KUB was done and no abnormal findings foung yesterday. Fall precautions in place, will continue to monitor pt.
[2020-01-29 07:08] VITALS: BP 158/76
--- NOTE | 2020-01-29 12:41 | NUR ---
ASSUMED CARE AT 0700. PATIENT IS ALERT AND ORIENTED X3, BUT FORGETFUL. PATIENT ROSALES'S, TOPPIECE CUTTER ARE EQUAL. LUNGS ARE CLEAR AND DEMINISHED. ABD IS SOFT WITH BSX.4 PATIENT INCONTINENT OF URINE AND STOOL WITH O.T. PATIENT IS UP WITH GAIT BELT AND WALKER AND ASSIST OF 1 STAFF WITH HELMET ON. PHOTOGRAPHY AND PRINTS CURATOR TO ORDER INSERTS FOR HELMET FOR A BETTER FIT. PATIENT REMAINS ON FLUID RESTRICTION OF 1L PER DAY. FALL AND SAFETY PROTOCOL IN PLACE. MEDICATED WITH SCED PAIN MED. R/T ABD PAIN. CONTINUES TO PROGRESS SLOWLY TOWARDS D/C GOALS. WILL CONTINUE TO MONITER.
--- NOTE | 2020-01-29 12:48 | NUR ---
ASSUMED CARE AT 0700. PATIENT IS ALERT AND ORIENTEDX4. CHILDBIRTH EDUCATOR ARE EQUAL. ROSALES'S. PATIENT IS UP WITH SBA. PATIENT HAS WOUND VAC TO HIS MID-CHEST REGION. UP IN HIS RECLINER FOR MEALS. DRESSING CHANGED. PATIENT CONTINUES ON ORAL ABT WITHOUT ADVERSE AFFECTS. FALL AND SAFETY PROTOCOLS IN PLACE. DENEIS PAIN AT THIS TIME. CONTINUES TO PROGRESS TOWARDS D/C GOALS. WILL CONTINUE TO MONITER
--- NOTE | 2020-01-29 13:47 | NUR ---
team meeting, recommendation: optical coating technician unable to get pt new helmet, are going to get her some padding. c/o pain left foot arch. incont of b and b. re team with anticipation dc 02/08/2020 back to alf.
--- NOTE | 2020-01-29 15:38 | NUR ---
FAXED CLINICAL UPDATE TO [facility] RECEIVED CONFIRMATION AND SPOKE WITH NADYA TORRES OF [facility] THAT PT IS SCHEDULED TO DC ON 02/08/20. DP TO FOLLOW.
[2020-01-29 19:05] VITALS: BP 124/63
--- NOTE | 2020-01-29 22:46 | NUR ---
PT ASSESSMENT COMPLETED AND VSS. MEDS GIVEN ORDERED AND WELL TOLERATED. FALL PRECAUTIONS IN PLACE. INC OF LARGE AMOUNTS OF URINE. ASST WITH FREQUENT REPOSITION FOR COMFORT. SLEEPING WELL. DENIES NEEDS. WILL CONTINUE TO MONITOR FREQUENTLY.
[2020-01-30 08:08] VITALS: BP 176/96
--- NOTE | 2020-01-30 08:10 | NUR ---
ASSUMED CARE AT 0700. REPORTS DIDN'T SLEEP WELL LAST NIGHT. B/P 176/96, HR 85. NOT ON HYPERTENSIVE MED AT THIS MOMENT. WILL NOTIFY JAYA AND CONTINUE TO MONITOR B/P. PATIENT IS ALERT AND ORIENTED X3, BUT FORGETFUL. REASSEMENT PER CHART. SENIOR SUPPORT ANALYST ARE EQUAL. LUNGS ARE CLEAR AND DEMINISHED. ABD IS SOFT WITH BSX.4 PATIENT INCONTINENT OF URINE AND STOOL PER REPORT. WILL CONTINUE TO OFFER TOILETING DURING DAY. PATIENT IS UP WITH GAIT BELT AND WALKER AND ASSIST OF 1 STAFF WITH HELMET ON. LABORER BRUSH CLEARING TO ORDER INSERTS FOR HELMET FOR A BETTER FIT. WILL CONTINUE TO FOLLOW UP. PATIENT REMAINS ON FLUID RESTRICTION OF 1L PER DAY. C/O FOOT PAIN 05/12 SCHEDULE TYLENOL GIVEN AND TRAMADOL PRN GIVEN PER PHYSICAL THERAPIST REQUEST.FALL AND SAFETY PROTOCOL IN PLACE. CONTINUES TO PROGRESS SLOWLY TOWARDS D/C GOALS. WILL CONTINUE TO MONITOR.
[2020-01-30 10:46] VITALS: BP 141/90
[2020-01-30 19:20] VITALS: BP 153/92
--- NOTE | 2020-01-31 00:46 | NUR ---
ASSUMED CARE AROUND 1899, PT A&O X 3, FORGETFUL AT TIMES. NO ACUTE DISTRESS DURING SHIFT. VSS, O2 ON RA. PT PAIN CONTROLLED WITH GINA TYLENOL. TRAZODONE STARTED TONIGHT FOR SLEEP, GIVEN AT 2119, PT HAS BEEN ASLEEP SINCE 2144 (SLEEPING SOUNDLY). MEDS GIVEN WITH YOGHURT. BG ACHS WITH SS NEEDED. INCONTINENT AT TIMES, BM DURING DAYSHIFT. PT SLEEPING, CALL LIGHT WITHIN REACH, WILL CONTINUE TO MONITOR PER POC.
[2020-01-31 06:00] LABS: ABSOLUTE NEUTROPHILS 3.8 thou/uL (1.4-8.2); BASOPHILS 0.9 % (0.0-2.0); HEMATOCRIT 36.8 % (37.0-47.0); HEMOGLOBIN 12.2 gm/dL (12.0-15.0); LYMPHOCYTES 27.8 % (24.0-44.0); MCH 29.4 pg (26.0-34.0); MCHC 33.1 g/dL (28.0-37.0); MONOCYTES 8.9 % (1.0-8.0); PLATELET COUNT 331 thou/uL (150-400); POLYS 57.4 % (36.0-66.0); RBC 4.14 mil/uL (4.20-5.00); RDW 15.4 % (10.5-14.5); WBC 6.6 thou/uL (4.0-11.0)
[2020-01-31 06:09] LABS: CALCIUM 8.8 mg/dL (8.5-10.1); CREATININE 0.5 mg/dL (0.6-1.0); MAGNESIUM 1.9 mg/dL (1.8-2.4); POTASSIUM 4.4 mmol/L (3.5-5.1)
--- NOTE | 2020-01-31 06:53 | NUR ---
PT SLEPT SOUNDLY THROUGHOUT SHIFT, WAS AWAKEN AROUNT 0530 FOR LAB DRAWS AND MORNINGS MEDS. PT STATED THAT SHE SLEPT WELL. WENT BACK TO SLEEP AFTER MEDS WERE GIVEN.
[2020-01-31 07:05] VITALS: BP 155/84
--- NOTE | 2020-01-31 09:20 | NUR ---
received phone call from [facility], harrison provided updated via phone call on dcp. " i will talk with occupational therapy supervisor it good she working with therapy but with covid 19 she might have to go to differed facility and quarantine, still not letting hh or outside visitor to group homes or [facility]. will let you know before dc"/[facility].
--- NOTE | 2020-01-31 17:43 | NUR ---
ASSUMED CARE OF PT AT 0700. PT IS A&OX3, VITAL SIGNS ARE STABLE. PT REPORTS PAIN, MANAGED WITH PO MEDICAITONS PER ORDERS, PARTICIPATED IN SCHEDULED THERAPIES. HELMET IN PLACE WHEN OUT OF BED. ACCU CHECKS ACHS, INSULIN ADMINISTERED PER SS ORDERED. FALL PRECAUTIONS IN PLACE AND NURSING WILL CONTINUE TO MONITOR.
[2020-01-31 19:42] VITALS: BP 138/75
--- NOTE | 2020-01-31 23:20 | NUR ---
PT ASSESSMENT COMPLETED AND VSS. MEDS GIVEN ORDERED AND WELL TOLERATED. PT WAS NOT ABLE TO VOID ON THE BSC. INC OF URINE. 0 BM SO FAR DURING SHIFT. ASST WITH FREQUENT REPOSITION FOR COMFORT USING PILLOWS. FALL PRECAUTIONS IN PLACE. SLEEPING MEDICATION WORKING WELL. PT APPEARS COMFORTABLE. SLEEPING. WILL CONTINUE TO MONITOR FREQUENTLY. INSULIN GIVEN ORDERED WITH SNACK.
[2020-02-01 08:00] VITALS: BP 144/79
--- NOTE | 2020-02-01 14:35 | NUR ---
ASSUMED CARE OF PT AT 0700. PT IS A&OX3, VITAL SIGNS ARE STABLE. PT REPORTS GENERALIZED PAIN IN AM, MANAGED WITH PO MEDICAITONS, RESTING IN BED AND DENIES PAIN THIS AFTERNOON. HELMET IN PLACE WHEN OUT OF BED. ACCU CHECKS ACHS AND MANAGED WITH PO MEDICATIONS AND INSULIN SS PER ORDERS. FOLLOWING 1L FREE FLUID RESTRICTION PER ORDERS. PER PT REQUEST CONTACTED BROTHER JEN WITH UPDATE. DENIES QUESTIONS OR CONCERS AT THIS TIME. PARTICIPATED IN SCHEDULED THERAPIES. FALL PRECATUIONS IN PLACE AND NURSING WILL CONTINUE TO MONITOR.
[2020-02-01 19:31] VITALS: BP 133/67
--- NOTE | 2020-02-02 04:05 | NUR ---
Pt. rested quietly at intervals during the night when checked on during frequent rounds. She offers no c/o pain or discomfort. Scheduled sleeping meds given with effective results. Insulin given at HS per SSI. Bed alarm is on.
[2020-02-02 08:00] VITALS: BP 149/82
--- NOTE | 2020-02-02 17:53 | NUR ---
ASSUMED CARE OF PT AT 0700. PT IS A&OX4 AND VITAL SIGNS ARE STABLE. PT REPORTED GENERALIZED PAIN IN AM, MANAGED WITH PO MEDICAITONS. PARTICIPATED IN SCHEDULED THERAPIES. ACCU CHECKS ACHS. PT RESTING IN ROOM FOR AFTERNOON. HELMENT ON WHEN OOB. FALL PRECAUTIONS IN PLACE. NURSING WILL CONTINUE TO MONITOR.
[2020-02-02 19:24] VITALS: BP 141/88
--- NOTE | 2020-02-03 04:32 | NUR ---
PT ASSESSMENT COMPLETED AND VSS. MEDS GIVEN ORDERED AND WELL TOLERATED. FALL PRECAUTIONS IN PLACE. ASST WITH REPOSITION USING PILLOWS FOR COMFORT. INC OF LARGE AMOUNTS OF URINE. JORDEN CARE PROVIDED. SLEEPING WELL. WILL CONTINUE TO MONITOR FREQUENTLY.
[2020-02-03 08:10] VITALS: BP 142/75
--- NOTE | 2020-02-03 13:47 | NUR ---
ASSUMED CARES AT 0700. PT AWAKE, ORIENTED TO PERSON AND PLACE. C/O LEFT LEG PAIN, NO S&S OF INFLAMMATION OR INFECTION NOTED. ACETAMINOPHEN ADMINISTERED NEEDED. VITALS REMAIN STABLE. REMAINS INCONTINENT OF B&B. EATING 100% OF HER MEAL, 1L FLUID RESTRICTION MAINTAINED. UP WITH 1 MIN-MOD ASSIST, GB AND WALKER AND TOLERATED WELL. HELMET ON WITH ALL AMBULATION AND TRANSFERS. Q1H VISUAL CHECKS. CALL LIGHT WITHIN REACH. FALL PRECAUTIONS IN PLACE
[2020-02-03 19:21] VITALS: BP 134/67
--- NOTE | 2020-02-03 23:35 | NUR ---
PT ASSESSMENT COMPLETED AND VSS. MEDS GIVEN ORDERED AND WELL TOLERATED. FALL PRECAUTIONS IN PLACE. PT C/O CONSTIPATION. PRUNE JUICE/STOOL SOFTNER/AND SUPPITORY GIVEN. PT HAD A VERY LARGE, HARD, BROWN BM. PT STATES THAT SHE FEELS BETTER NOW. SLEEPING WELL. WILL CONTINUE TO MONITOR FREQUENTLY.
[2020-02-04 07:20] VITALS: BP 154/83
--- NOTE | 2020-02-04 09:54 | NUR ---
referral to be sent to [facility] . cm received message from nurse cronin with [facility], they are working with [facility] that she will have to go to a temporary intermediate since she been in hospital before she can return to [facility]. cm has left message for address of temporary home where she will be staying to see if [facility] will be able to take her for hh at the new address. will cont following as needed for dc needs.
--- NOTE | 2020-02-04 10:52 | NUR ---
FAXED REFERRAL TO [facility] SPOKE WITH ENMA IN INTAKE SHE RECEIVED YREFERRAL AND CAN ACCPET AD DC ANTICIPATE DC 02/07.
[2020-02-04 10:55] VITALS: BP 142/74
--- NOTE | 2020-02-04 14:05 | NUR ---
Nutrition followup: pt continues to eat very well, 100% of meals and snacks. Recent weights stable at 117# with question of prior loss according to trends but pt unable to verify. Continues on 1000 mL fluid restriction daily with Na+ level now WNL. On MVI, Vitamin D and ferrous sulfate. Pt appears very happy with meals and voices no concerns/questions for RD. Noted D/C plan for 02/07. Low risk.
--- NOTE | 2020-02-04 14:42 | NUR ---
ASSUMED CARES AT 0700. PT ORIENTED TO PERSON AND PLACE ONLY. VITALS STABLE. C/O ABDOMINAL PAIN R/T CONSTIPATION, HAD *2 BM, LOOSE (LARGE AND MED). ABDOMEN SOFT BUT DISTENDED WITH ACTIVE BS*4. ACETAMINOPHEN GIVEN NEEDED FOR COMFORT. PT UP IN THE CHAIR FOR ALL MEALS. HELMET IN PLACE DURING ALL ACTIVITIES AND TRANSFERS. PT UP WITH 1 MIN-MOD ASSIST, GB AND WALKER AND TOLERATED WELL. Q1H VISUAL CHECKS. CALL LIGHT WITHIN REACH. FALL PRECAUTIONS IN PLACE
[2020-02-04 20:11] VITALS: BP 150/88
--- NOTE | 2020-02-05 02:24 | NUR ---
assumed care at approx 1900 evening 02/03. pt lying in bed with head of bed elevated at change of shift watching tv. pt pleasant and cooperative. pt took hs meds crushed in applesauce tolerating well. pt incontinent of urine assisted with changing of pad. pt sometimes appears to talk in her sleep and also yells out "Ow" at random times. pt c/o abdomen hurting and Tramadol given as ordered. pt back to sleep now. bed alarm on and call light in reach. will continue to monitor.
[2020-02-05 08:00] VITALS: BP 151/97
--- NOTE | 2020-02-05 09:30 | NUR ---
cm received message from nurse dumont with [facility] that pt will be going to stay at [id number] [facility] [id number] for quarantine prior to going back to her [facility].
--- NOTE | 2020-02-05 11:17 | NUR ---
ASSUMED CARE AT 0700. PATIENT IS ALERT AND ORIENTED X4. PATIENT ROSALES'S. WAITER AND CASHIER ARE EQUAL. LUNGS ARE CLEAR AND DEMINISHED. ABD IS SOFT WITH BSX4. UP IN W/C TO DINING ROOM FOR MEALS WITH HELMET ON. FALL AND SAFETY PROTOCOLS IN PLACE. C/O PAIN IN HER BACK. MEDICATED WITH SCED PAIN MED. CONTINUES TO PROGRESS SLOWLY TOWARDS D/C GOALS. WILL CONTINUE TO MONITER.
[2020-02-05 11:27] VITALS: BP 142/74
--- NOTE | 2020-02-05 12:36 | NUR ---
FAXED REFERRAL TO [facility] SPOKE WITH HENRY IN INTAKE SHE RECEIVED REFERRAL AND WILL BE ABLE TO ACCEPT AT DC. ANTICIPATE DC 5/8 DP TO FOLLOW.
[2020-02-05 12:38] VITALS: BP 142/74
[2020-02-05 19:20] VITALS: BP 119/55
--- NOTE | 2020-02-06 04:01 | NUR ---
Assumed pt care at 1900. Pt is A/OX3,able to make needs known. VSS. Incontinent of bladder. Took HS meds whole in applesauce w/o difficulties. Continues on 1 L/24hr fluid restrictions and adheres to it. Medicated for pain per EMAR with relief reported. Resting quietly at this time,eyes closed w/o any distress noted will continue to monitor pt.
[2020-02-06 06:25] LABS: ABSOLUTE NEUTROPHILS 2.8 thou/uL (1.4-8.2); BASOPHILS 0.9 % (0.0-2.0); EOSINOPHILS 6.4 % (0.0-3.0); HEMATOCRIT 36.5 % (37.0-47.0); LYMPHOCYTES 35.2 % (24.0-44.0); MCHC 32.9 g/dL (28.0-37.0); MCV 88.2 fL (80.0-100.0); MONOCYTES 8.5 % (1.0-8.0); PLATELET COUNT 281 thou/uL (150-400); RBC 4.14 mil/uL (4.20-5.00); RDW 15.4 % (10.5-14.5); WBC 5.6 thou/uL (4.0-11.0)
[2020-02-06 06:38] LABS: CALCIUM 9.1 mg/dL (8.5-10.1); CREATININE 0.6 mg/dL (0.6-1.0); MAGNESIUM 1.8 mg/dL (1.8-2.4); POTASSIUM 4.2 mmol/L (3.5-5.1)
--- NOTE | 2020-02-06 10:22 | NUR ---
ASSUMED CARE AT 0700. PATIENT IS ALERT AND ORIENTED X3. PATIENT ROSALES, DIRECTOR CASE ARE EQUAL. LUNGS ARE CLEAR. ABD IS SOFT WITH BSX4. PATIENT WAS INCONTINENT OF BM WITH P.T. X2. LAXATIVES HELD. INCONTINENT OF URINE. FALL AND SAFETY PROTOCOLS IN PLACE. C/O PAIN IN HER FEET. MEDICATED WITH SCED PAIN MED. PATIENT CONTINUES TO PROGRESS SLOWLY TOWARDS D/C GOALS. WILL CONTINUE TO MONITER.
[2020-02-06 19:20] VITALS: BP 164/90
--- NOTE | 2020-02-07 04:52 | NUR ---
SCHEDULED TYLENOL FOR C/O BELLY PAIN, INCONTINENT OF BOWEL AND BLADDER. TOLERATING MEDS CRUSHED IN APPLESAUCE. 3 UNITS SLIDING SCALE INSULIN FOR BLOOD SUGAR OF 192
[2020-02-07 08:00] VITALS: BP 129/71
--- NOTE | 2020-02-07 15:24 | NUR ---
faxed covid 19 form to [facility] [phone]. they will set up transportation for around 1300 tomorrow. they will need copy for dc orders as [facility] as [facility]. cm passed on dc time to sleep medicine physician and bedside nurse. will cont following as needed for dc needs.
--- NOTE | 2020-02-07 19:43 | NUR ---
ASSUMED CARE OF PT AT 0700. PT IS A&OX3 AND VITAL SIGNS ARE STABLE. PT REPORTED GENERALIZED PAIN, MANAGED WITH PO MEDICITONS. PER THERAPY PT HAD CLOUDY URINE WITH STRONG SMELL AND PT REPORTED PAIN WITH URINATION. ORDERS FOR UA OBTAINED, NO SAMPLE COLLECTED AT THIS TIME. ACCU CHECKS ACHS. HELMET ON WHEN OOB. FALL PRECAUTIONS IN PLACE AND NURING WILL CONTINUE TO MONITOR.
[2020-02-07 19:47] VITALS: BP 146/81
[2020-02-07 23:15] LABS: URINE BILIRUBIN NEGATIVE (Negative); URINE BLOOD NEGATIVE (Negative); URINE CLARITY CLEAR; URINE COLOR YELLOW; URINE GLUCOSE-RANDOM* NEGATIVE (Negative); URINE KETONES NEGATIVE (Negative); URINE LEUKOCYTES-REFLEX 1+ (Negative); URINE NITRITE-REFLEX POSITIVE (Negative); URINE PROTEIN (DIPSTICK) NEGATIVE (Negative); URINE UROBILINOGEN 0.2 E.U./dl (0.2-1.0)
[2020-02-07 23:24] LABS: BACTERIA-REFLEX >30 Many /HPF (None Seen); CASTS None Seen /LPF (None Seen); CRYSTALS None Seen /LPF (None Seen); SQUAMOUS 0-3 Few /LPF (0-3); URINE RBC None Seen /HPF (0-2); URINE WBC-REFLEX >25 Many /HPF (0-5)
--- NOTE | 2020-02-08 00:55 | NUR ---
PT ASSESSMENT COMPLETED AND VSS. MEDS GIVEN ORDERED AND WELL TOLERATED. FALL PRECAUTIONS IN PLACE. URINE SAMPLE SENT TO THE LAB AND PENDING. ASST WITH FREQUENT REPOSITION FOR COMFORT. INC OF URINE AND LARGE BM AT HS. DENIES NEEDS. SLEEPING WELL. WILL CONTINUE TO MONITOR FREQUENTLY.
[2020-02-08 07:30] VITALS: BP 141/84
[2020-02-08] MEDS ORDERED: LISINOPRIL10 MG PO (08:11)
[2020-02-08] MEDS ORDERED: SENNA8.6 MG PO (08:11)
[2020-02-08] MEDS ORDERED: TRAZODONE HCL50 MG PO (08:11)
[2020-02-08] MEDS ORDERED: MELATONIN5 M1 PO (08:11)
[2020-02-08] MEDS ORDERED: IRON325 PO (08:11)
[2020-02-08] MEDS ORDERED: GLIPIZIDE5 MG PO (08:11)
[2020-02-08] MEDS ORDERED: VITAMIN B-12500 MCG PO (08:11)
[2020-02-08] MEDS ORDERED: CIPROFLOXACIN500 M1 PO (08:39)
[2020-02-08] MEDS ORDERED: PROBIOTIC1 EAC7 PO (08:39)
[2020-02-08 09:00] VITALS: BP 141/84
--- NOTE | 2020-02-08 11:52 | PLAN ---
[facility] [place] [address] REHAB UNIT PLAN OF CARE Name: YIN Room #: 505-P ADM IN M.R.#: [id number] Admission: 01/22/20 Attend Phys: Artis Bates MD Discharge: Date of : 63 Report #: [id number] THIS REPORT FOR: //name// CC: Artis Lee DATE OF SERVICE: 01/25/2020 PROGRESS NOTE/OVERALL PLAN OF CARE The patient was seen back today in followup. She has some left ankle discomfort/left foot. She is vague regarding history, but it sounds like it has been a chronic mild problem for her. No history of trauma, no twisting injury. On exam, she is alert, pleasant. She has her helmet in place. She is slow with her responses, which is her baseline. Transfers are mod assist, sit to stand. She has ambulated 10 feet, mod assist with a front-wheeled walker. In occupational therapy, upper body dressing is max assist and lower body dressing is dependent. I examined her left foot. There is no evidence of swelling or erythema. Alignment appears appropriate. She has reasonable range of motion. Exam was basically negative. She also was seen in speech therapy with severe cognition and severe memory. ASSESSMENT: A 54-year-old white female with the following problem list: 1. Metabolic encephalopathy. 2. Medical complexity with generalized debilitation. 3. Multifactorial hyponatremia. 4. Prader-Willi syndrome. 5. Iron deficiency anemia. 6. Hypertension. 7. Chronic mild left ankle discomfort with negative this morning. Plan discussed with the patient and we will continue to monitor her left ankle. Occupational therapy notes that she has been standing and weightbearing through that ankle without any noted problem. She probably has some chronic degenerative arthritic changes there. I discussed with her that we could consider an x-ray if the symptoms continue. From an overall plan of care perspective, this is based on the preadmission screen, post-admission physician evaluation and information garnered from therapy assessments. 1. Estimated length of stay is probably 7-10 days. 2. Medical prognosis is reasonably good. 3. Anticipated interventions includes the interdisciplinary acute inpatient rehabilitation program. 4. Anticipated functional outcomes would be for the patient to become modified independent or at least to achieve a level where she could get around with a [facility] [address] [place] [address] REHAB UNIT PLAN OF CARE Name: Room #: 505-P ADM IN M.R.#: [id number] Admission: 01/22/20 Attend Phys: Artis Bates MD Discharge: Date of : 63 Report #: [id number] walker as she was before, so that she can go back to her detention. 5. Discharge destination is the detention as noted above. Goal is to achieve as close as possible to her prior functional level. 6. Expected therapy by discipline includes PT, OT and speech 1-hour per day each five days a week throughout the duration of the acute inpatient rehabilitation stay. <ELECTRONICALLY SIGNED> By: Artis Bates MD 02/08/20 1152 [id number] Artis Bates MD /nt
[2020-02-08 12:11] VITALS: BP 142/74
--- NOTE | 2020-02-08 13:23 | NUR ---
PT DISCHARGING TODAY TO INTERMITTENT LONGTERM FAXED DC ORDERS/SUMMARY TO [facility] HH SPOKE WITH [facility] IN INTAKE THEY RECEIVED ORDERS AND VERIFIED ADDRESS THAT PT DISCHARGING TO AND THEY WILL NOTIFY PT TIME OF VISITS.
--- NOTE | 2020-02-08 16:54 | NUR ---
ASSUMED CARE OF PT AT 0700 PT IS A&OX4 AND VITAL SIGNS ARE STABLE. PT REPORTED GENERALIZED PAIN, MANAGED WITH PO MEDICATIONS. ORDERS FOR DISCHARGE TODAY RECEIVED. FAXED DISCHARGE ORDERS DIRECTED BY CM TO PROVIDED FAX NUMBER. CALLED RN, REID LISTED FOR PT REPRESENTITIVE REVIEWED DISCHARGE INSTRUCTIONS, EDUCATION AND MEDICATIONS. SENT PT WITH SCRIPTS FOR DISCHARGE MEDICATIONS. REPRESENTITIVE DENIES QUESTIONS OR CONCERNS. PT DISCAHRGED AT 1330 WITH ARRANGED TRANSPORTATION. ASSISTED INTO VEHICLE BY NURSING STAFF.
== END 2020-02-08 13:55 | disposition home health service (06) | DRG 71 ==
PROVIDERS: Internal Medicine; Nurse Practitioner; Nurse Practitioner Family; ADMIT Physical Medicine & Rehabilitation
DX: G93.41 Metabolic encephalopathy (principal); E87.1 Hypo-osmolality and hyponatremia; E46 Unspecified protein-calorie malnutrition; Q87.11 Prader-Willi syndrome; R53.81 Other malaise; D50.9 Iron deficiency anemia, unspecified; I10 Essential (primary) hypertension; M81.0 Age-related osteoporosis without current pathological fracture; E78.5 Hyperlipidemia, unspecified; R41.0 Disorientation, unspecified; E11.9 Type 2 diabetes mellitus without complications; G47.00 Insomnia, unspecified; F41.9 Anxiety disorder, unspecified; E53.8 Deficiency of other specified B group vitamins; K59.09 Other constipation; Z68.22 Body mass index [BMI] 22.0-22.9, adult; Z88.6 Allergy status to analgesic agent; Z88.8 Allergy status to other drugs, medicaments and biological substances; E83.42 Hypomagnesemia
CPT/HCPCS: 10112